=== PATIENT | male | born 1975 | race Caucasian/White ===

== ENCOUNTER 2018-02-18 11:18 | Inpatient (IN) ==
[2018-02-18] MEDS ORDERED: 0.9 % Sodium Chloride 1,000 ML IVC ONE (11:42)
[2018-02-18] MEDS ORDERED: Thiamine (B-1) 100 MG, Folic Acid 1 MG in 0.9 % Sodium Chloride 50 ML IVPB ONE (11:45)
--- NOTE | 2018-02-18 11:48 | Emergency Department Note ---
Disposition Clinical Impression: Alcoholism, Hypokalemia, Weakness Disposition: Admitted As Inpatient Condition: Fair Referrals: NONE,PCP [Primary Care Provider] - Forms: ED Satisfaction Letter, Work/School Release Time of Disposition: 15:46 General Adult HPI - General Chief complaint: ED General Medical Stated complaint: "Numbness in legs,dizzy when standing up" Time Seen by Provider: 02/18/18 11:24 Source: patient, family Mode of arrival: wheelchair Limitations: no limitations Nursing Notes Reviewed: Yes Vital Signs Reviewed: Yes - History of Present Illness HPI Narrative: 42-year-old male with history of alcoholism states that he drinks a half a bottle a day presents for evaluation of multiple complaints. Patient states he has had numbness in his lower legs over the past 4 weeks. States that he has been evaluated multiple times without a clear diagnosis. Patient's been on Lyrica to help with the numbness. Patient also had increasing weakness of his lower legs. Recurrent falls stated per family. Patient denies any loss of consciousness. Patient denies any weakness or numbness anywhere else. Patient denies any back pain. Patient denies any chest pain or shortness of breath. Denies any abdominal pain. No nausea or vomiting. Patient denies any other drug use besides alcohol. Patient was admitted in the past for alcohol withdrawals. States his last beverage was yesterday. No drinks this morning. Family also states the patient has had a 35 pound unintentional weight loss over the past couple months. States the patient just does not eat. Pain Scale: 0 - Related Data Home Medications Medication Instructions Recorded Confirmed Metoprolol Succinate [Toprol Xl] 25 mg PO DAILY 02/18/18 02/18/18 Multivits,Ca,Min/Iron/FA/Lycop 1 tab PO DAILY 02/18/18 02/18/18 [Men Under 50 Multivitamin Tab] Pregabalin [Lyrica] 75 mg PO BID 02/18/18 02/18/18 Allergies Allergy/AdvReac Type Severity Reaction Status Date / Time No Known Allergies Allergy Verified 02/18/18 11:23 All systems ED: reviewed and negative except as stated. Constitutional: Denies: fever Cardiovascular: Denies: chest pain Respiratory: Denies: cough, dyspnea Gastrointestinal: Denies: abdominal pain, nausea, vomiting Past Medical History - Past Medical History Attestation: Yes The following information was validated with the patient. Source: patient, obtained from family Physical Exam - General Limitations: no limitations General appearance: alert, in no apparent distress - Head Head exam: atraumatic - Eye Eye exam: Present: normal appearance, PERRL, EOMI, scleral icterus, nystagmus ( Left-sided horizontal nystagmus) - ENT ENT exam: normal exam, mucous membranes moist - Neck Neck exam: Present: normal inspection, trachea midline. Absent: tenderness - Chest Chest inspection: Present: normal inspection - Respiratory Respiratory exam: Present: prolonged expiratory phase, other (Course right lower lung sounds). Absent: respiratory distress - Cardiovascular Cardiovascular exam: Present: regular rate, normal rhythm. Absent: systolic murmur - Abdominal Exam Abdominal exam: Present: soft, Non-Tender - Expanded Lower Extremity Exam Knee exam: Present: normal inspection. Absent: tenderness Lower leg exam: Present: ecchymosis (Aged ecchymosis), other. Absent: tenderness Neurovascular/Tendon exam: Present: normal capillary refill, sensory deficit - Back Exam Back exam: Present: normal inspection - Neurological Exam Neurological exam: Present: alert, CN II-XII intact. Absent: oriented X3 - Expanded Neurological Exam Patient oriented to: Present: person, place. Absent: time Speech: Present: fluid speech Cranial nerves: EOM function (II, III, IV, ): Normal, facial sensation (V): Normal, facial palsy (VII): Normal, spinal accessory function (XI): Normal, tongue deviation (XII): Normal Cerebellar function: finger to nose: Abnormal Right, Abnormal Left Motor strength - LUE: 5/5 Motor strength - RUE: 5/5 Motor strength - LLE: 4/5 Motor strength - RLE: 4/5 Sensory exam lower extremity: light touch: Abnormal Left, Abnormal Right Coma Scale Eye Opening: Spontaneous Coma Scale Motor Response: Obeys Commands Coma Scale Verbal Response: Confused Coma Scale Total: 14 - Skin Skin exam: Present: warm, dry, intact, normal color Course Course Narrative: Patient seen and examined. Concerns of chronic alcoholism affecting the patient 's mentation current neurologic symptoms. Patient will get imaging of the head. Patient also had extensive imaging of the chest. Patient will get basic labs urinalysis. Disposition likely admission. - Reevaluation(s) Reevaluation #1: Patient's records reviewed from [facility]. Patient had an MRI without contrast of the lumbar spine. Patient had right-sided L4-L5 and L5-S1 facet arthropathy. Mild right foraminal stenosis of the above levels. Time: 13:53 Reevaluation #2: Patient does have evidence of diffuse inflammation throughout his chest better pelvis. Concerns of possible inflammation in the lungs as well as inflammation with colitis in the colon. Patient is not tender over the right upper quadrant however the patient does have CT findings which would warrant his ultrasound of the gallbladder. Patient will be started on broad-spectrum antibiotics. Admission to the hospital. Vital Signs Temperature 98.4 F 02/18/18 11:20 Pulse Rate 77 02/18/18 11:20 Respiratory Rate 18 02/18/18 11:20 Blood Pressure 103/46 02/18/18 11:20 O2 Sat by Pulse Oximetry 96 02/18/18 11:20 Temperature 98.4 F 02/18/18 11:23 Pulse Rate 119 02/18/18 15:12 Respiratory Rate 18 02/18/18 15:12 Blood Pressure 113/88 02/18/18 15:12 O2 Sat by Pulse Oximetry 97 02/18/18 15:12 Oxygen Delivery Oxygen Delivery Room Air Medical Decision Making - MDM Narrative Medical decision making narrative: Patient presents with acute neurologic symptoms that have been going on for the past month. Patient notes weakness of the lower legs. Patient does have atrophy the lower legs. Patient had an MRI of the lumbar spine obtained a month ago those results were reviewed. Given the patient's weight loss CT imaging of the chest abdomen pelvis is obtained. Patient has extensive inflammation with nonspecific findings throughout. Patient was started on broad -spectrum antibiotics. Patient did have several a slight abnormalities which were repleted in the ED course. Patient will be admitted to the hospital service for further evaluation monitoring. - Lab Data Lab results reviewed: Yes I reviewed the patient's lab results. Result diagrams: 02/18/18 11:58 02/18/18 11:58 Lab Results 02/18/18 02/18/18 02/18/18 Range/Units 11:38 11:58 11:58 WBC 11.3 H (4.3-11.1) K/mcL RBC 3.17 L (4.19-5.50) M/mcL Hgb 12.5 L (12.9-16.9) g/dL Hct 34.7 L (37.5-50.1) % MCV 109.5 H (83.0-100.0) fL MCH 39.4 H (28.0-33.3) pg MCHC 36.0 H (31.6-35.5) g/dL RDW 12.4 (11.5-14.5) % Plt Count 154 (140-400) K/mcL MPV 11.8 (9.4-12.4) fL Immature Gran % 1.3 (0-4) % Seg Neutrophils % 82.2 % Lymphocytes % 10.1 % Monocytes % 6.0 % Eosinophils % 0.0 % Basophils % 0.4 % Neutrophils # 9.3 H (1.6-8.9) K/mcL Lymphocytes # 1.1 (0.6-4.6) K/mcL Monocytes # 0.7 (0.0-1.3) K/mcL Eosinophils # 0.0 (0.0-0.6) K/mcL Basophils # 0.1 (0.0-0.2) K/mcL Nucleated RBCs/100 WBC 0.4 H (0) /100 WBC PT 14.3 H (9.4-12.1) Seconds INR 1.3 Sodium (136-145) mEq/L Potassium (3.5-5.1) mEq/L Chloride (98-107) mEq/L Carbon Dioxide (23-29) mEq/L BUN (6-20) mg/dL Creatinine (0.70-1.30) mg/dL Est GFR ( Amer) (> 60) Est GFR (Non-Af Amer) (> 60) BUN/Creatinine Ratio (6-26) Glucose (70-105) mg/dL Calculated Osmolality (280-300) Lactic Acid (0.5-2.2) mmol/L Calcium (8.6-10.3) mg/dL Phosphorus (2.7-4.5) mg/dL Magnesium (1.6-2.6) mg/dL Total Bilirubin (0.3-1.0) mg/dL AST (13-39) Units/L ALT (7-52) Units/L Alkaline Phosphatase (34-104) Units/L Creatine Kinase (30-223) Units/L Troponin I (< 0.04) ng/mL Serum Total Protein (6.4-8.9) g/dL Albumin (3.5-5.7) g/dL Globulin (2.4-3.5) g/dL Albumin/Globulin Ratio (1.1-2.2) Vitamin B12 677 (250-1100) pg/mL TSH (0.340-5.600) mcIU/mL Urine Color (Yellow) Urine Clarity (Clear) Urine pH (5.0-8.0) pH Units Ur Specific [place] (1.010-1.025) Urine Protein (Neg-Trace) mg/dL Urine Glucose (UA) (Normal) mg/dL Urine Ketones (Negative) mg/dL Urine Blood (Negative) Urine Nitrite (Negative) Urine Bilirubin (Negative) Urine Urobilinogen (Normal) mg/dL Ur Leukocyte Esterase (Negative) Urine Microscopic RBC (0-3) per hpf Ur Squamous Epith Cells (None-Few) per lpf Urine Bacteria (None-Few) per hpf Hyaline Casts (None-Few) per lpf Ur Culture Indicated? (NO) Urine Opiates Screen (Yqaprx=253) ng/mL Acetaminophen (10-20) mcg/mL Ur Barbiturates Screen (Rfhqyc=294) ng/mL Ur Phencyclidine Scrn (Cutoff=25) ng/mL Ur Amphetamines Screen (Xefblp=6203) ng/mL U Benzodiazepines Scrn (Azopza=352) ng/mL Urine Cocaine Screen (Cutoff= 300) ng/mL U Marijuana (THC) Screen (Cutoff = 50) ng/mL Ethyl Alcohol (Less than 10) mg/dL 02/18/18 02/18/18 02/18/18 Range/Units 11:58 11:58 12:23 WBC (4.3-11.1) K/mcL RBC (4.19-5.50) M/mcL Hgb (12.9-16.9) g/dL Hct (37.5-50.1) % MCV (83.0-100.0) fL MCH (28.0-33.3) pg MCHC (31.6-35.5) g/dL RDW (11.5-14.5) % Plt Count (140-400) K/mcL MPV (9.4-12.4) fL Immature Gran % (0-4) % Seg Neutrophils % % Lymphocytes % % Monocytes % % Eosinophils % % Basophils % % Neutrophils # (1.6-8.9) K/mcL Lymphocytes # (0.6-4.6) K/mcL Monocytes # (0.0-1.3) K/mcL Eosinophils # (0.0-0.6) K/mcL Basophils # (0.0-0.2) K/mcL Nucleated RBCs/100 WBC (0) /100 WBC PT (9.4-12.1) Seconds INR Sodium 130 L (136-145) mEq/L Potassium 2.9 L (3.5-5.1) mEq/L Chloride 81 L (98-107) mEq/L Carbon Dioxide 30 H (23-29) mEq/L BUN 6 (6-20) mg/dL Creatinine 0.95 (0.70-1.30) mg/dL Est GFR ( Amer) > 60 (> 60) Est GFR (Non-Af Amer) > 60 (> 60) BUN/Creatinine Ratio 6 (6-26) Glucose 154 H (70-105) mg/dL Calculated Osmolality 271 L (280-300) Lactic Acid (0.5-2.2) mmol/L Calcium 9.8 (8.6-10.3) mg/dL Phosphorus 1.9 L (2.7-4.5) mg/dL Magnesium 1.1 L (1.6-2.6) mg/dL Total Bilirubin 3.9 H (0.3-1.0) mg/dL AST 89 H (13-39) Units/L ALT 27 (7-52) Units/L Alkaline Phosphatase 224 H (34-104) Units/L Creatine Kinase 17 L (30-223) Units/L Troponin I < 0.03 (< 0.04) ng/mL Serum Total Protein 7.0 (6.4-8.9) g/dL Albumin 4.2 (3.5-5.7) g/dL Globulin 2.8 (2.4-3.5) g/dL Albumin/Globulin Ratio 1.5 (1.1-2.2) Vitamin B12 (250-1100) pg/mL TSH 4.574 (0.340-5.600) mcIU/mL Urine Color Dark Yellow (Yellow) Urine Clarity Slightly Hazy (Clear) Urine pH 7.0 (5.0-8.0) pH Units Ur Specific [place] 1.007 L (1.010-1.025) Urine Protein Negative (Neg-Trace) mg/dL Urine Glucose (UA) Normal (Normal) mg/dL Urine Ketones Trace H (Negative) mg/dL Urine Blood Negative (Negative) Urine Nitrite Negative (Negative) Urine Bilirubin Small H (Negative) Urine Urobilinogen 2.0 H (Normal) mg/dL Ur Leukocyte Esterase Negative (Negative) Urine Microscopic RBC 0-3 (0-3) per hpf Ur Squamous Epith Cells Moderate H (None-Few) per lpf Urine Bacteria Few (None-Few) per hpf Hyaline Casts None Seen (None-Few) per lpf Ur Culture Indicated? NO (NO) Urine Opiates Screen (Qyiywc=085) ng/mL Acetaminophen < 10 L (10-20) mcg/mL Ur Barbiturates Screen (Vgrjjd=109) ng/mL Ur Phencyclidine Scrn (Cutoff=25) ng/mL Ur Amphetamines Screen (Gunxny=3796) ng/mL U Benzodiazepines Scrn (Bmcwic=250) ng/mL Urine Cocaine Screen (Cutoff= 300) ng/mL U Marijuana (THC) Screen (Cutoff = 50) ng/mL Ethyl Alcohol < 10 (Less than 10) mg/dL 02/18/18 02/18/18 Range/Units 12:47 13:11 WBC (4.3-11.1) K/mcL RBC (4.19-5.50) M/mcL Hgb (12.9-16.9) g/dL Hct (37.5-50.1) % MCV (83.0-100.0) fL MCH (28.0-33.3) pg MCHC (31.6-35.5) g/dL RDW (11.5-14.5) % Plt Count (140-400) K/mcL MPV (9.4-12.4) fL Immature Gran % (0-4) % Seg Neutrophils % % Lymphocytes % % Monocytes % % Eosinophils % % Basophils % % Neutrophils # (1.6-8.9) K/mcL Lymphocytes # (0.6-4.6) K/mcL Monocytes # (0.0-1.3) K/mcL Eosinophils # (0.0-0.6) K/mcL Basophils # (0.0-0.2) K/mcL Nucleated RBCs/100 WBC (0) /100 WBC PT (9.4-12.1) Seconds INR Sodium (136-145) mEq/L Potassium (3.5-5.1) mEq/L Chloride (98-107) mEq/L Carbon Dioxide (23-29) mEq/L BUN (6-20) mg/dL Creatinine (0.70-1.30) mg/dL Est GFR ( Amer) (> 60) Est GFR (Non-Af Amer) (> 60) BUN/Creatinine Ratio (6-26) Glucose (70-105) mg/dL Calculated Osmolality (280-300) Lactic Acid 1.4 (0.5-2.2) mmol/L Calcium (8.6-10.3) mg/dL Phosphorus (2.7-4.5) mg/dL Magnesium (1.6-2.6) mg/dL Total Bilirubin (0.3-1.0) mg/dL AST (13-39) Units/L ALT (7-52) Units/L Alkaline Phosphatase (34-104) Units/L Creatine Kinase (30-223) Units/L Troponin I (< 0.04) ng/mL Serum Total Protein (6.4-8.9) g/dL Albumin (3.5-5.7) g/dL Globulin (2.4-3.5) g/dL Albumin/Globulin Ratio (1.1-2.2) Vitamin B12 (250-1100) pg/mL TSH (0.340-5.600) mcIU/mL Urine Color (Yellow) Urine Clarity (Clear) Urine pH (5.0-8.0) pH Units Ur Specific [place] (1.010-1.025) Urine Protein (Neg-Trace) mg/dL Urine Glucose (UA) (Normal) mg/dL Urine Ketones (Negative) mg/dL Urine Blood (Negative) Urine Nitrite (Negative) Urine Bilirubin (Negative) Urine Urobilinogen (Normal) mg/dL Ur Leukocyte Esterase (Negative) Urine Microscopic RBC (0-3) per hpf Ur Squamous Epith Cells (None-Few) per lpf Urine Bacteria (None-Few) per hpf Hyaline Casts (None-Few) per lpf Ur Culture Indicated? (NO) Urine Opiates Screen Negative (Vmjtcv=773) ng/mL Acetaminophen (10-20) mcg/mL Ur Barbiturates Screen Negative (Fsavqy=169) ng/mL Ur Phencyclidine Scrn Negative (Cutoff=25) ng/mL Ur Amphetamines Screen Negative (Qpvadk=5867) ng/mL U Benzodiazepines Scrn Negative (Uvzbdz=664) ng/mL Urine Cocaine Screen Negative (Cutoff= 300) ng/mL U Marijuana (THC) Screen Negative (Cutoff = 50) ng/mL Ethyl Alcohol (Less than 10) mg/dL - Radiology Data Radiology results reviewed: Yes I reviewed the patient's radiology results. Chest X-Ray 02/18/18 11:42 IMPRESSION: Unremarkable chest. D/ / Octavio Delgadillo MD / Octavio Delgadillo MD Interpreting Provider: Octavio Delgadillo MD Head CT 02/18/18 11:43 IMPRESSION: 1. No acute intracranial abnormality. D/ / Jett Patel MD / Jett Patel MD Interpreting Provider: Jett Patel MD Abdomen/Pelvis CT 02/18/18 11:56 IMPRESSION: 1. Tree-in-bud ground-glass densities in the right lower lobe and to a lesser extent the right upper lobe are suspicious for airway spread of infection. No focal airspace consolidation. 2. Nonspecific hyperdensity of the gallbladder lumen and hyperenhancement of the gallbladder wall may reflect sludge and nonspecific cholecystitis. Hypodensity of the adjacent liver parenchyma may reflect focal edema. If there is concern for cholecystitis, ultrasound is recommended for further evaluation. 3. Diffuse colonic wall thickening primarily involving the ascending and transverse colon may reflect underdistention ; however, subclinical infectious/inflammatory colitides or other etiologies are not excluded. Could consider nonemergent colonoscopy for further evaluation, as indicated. D/ / Kiko Vieira / Kiko Vieira Interpreting Provider: Kiko Vieira Chest CT 02/18/18 11:56 IMPRESSION: 1. Tree-in-bud ground-glass densities in the right lower lobe and to a lesser extent the right upper lobe are suspicious for airway spread of infection. No focal airspace consolidation. 2. Nonspecific hyperdensity of the gallbladder lumen and hyperenhancement of the gallbladder wall may reflect sludge and nonspecific cholecystitis. Hypodensity of the adjacent liver parenchyma may reflect focal edema. If there is concern for cholecystitis, ultrasound is recommended for further evaluation. 3. Diffuse colonic wall thickening primarily involving the ascending and transverse colon may reflect underdistention ; however, subclinical infectious/inflammatory colitides or other etiologies are not excluded. Could consider nonemergent colonoscopy for further evaluation, as indicated. D/ / Kiko Vieira / Kiko Vieira Interpreting Provider: Kiko Vieira - EKG Data EKG #1 EKG attestation: Yes I reviewed and interpreted this EKG. EKG shows normal: sinus rhythm Rate: tachycardia Rhythm: NSR [place]/QRS: normal Q waves: v4, v5, v6 Interpretation: no acute changes, nonspecific ST-T wave changes S.B.A.R. - S.B.AGiovany Situation: Demographics Background: Presenting Complaint Assessment: Vital Signs, Course and respsone to treatment Recommendation: Barrier(s) to disposition, Recommendation based on pending studies, treatments, or consults S.B.A.Raymundo Report Given to: Dr. Gaby Maradiaga Repor Time: 15:46
[2018-02-18] MEDS ORDERED: Isovue-370 500 ML INFUS..BTL IV ONE (11:56)
[2018-02-18 12:06] LABS: Basophils % 0.4 %; Red Blood Count 3.17 M/mcL (4.19-5.50)
[2018-02-18 12:12] LABS: INR 1.3; Prothrombin Time 14.3 Seconds (9.4-12.1)
[2018-02-18 12:35] LABS: Troponin I < 0.03 ng/mL (< 0.04)
[2018-02-18 12:46] LABS: Thyroid Stimulating Hormone 4.574 mcIU/mL (0.340-5.600)
[2018-02-18 12:56] LABS: Acetaminophen < 10 mcg/mL (10-20); Ethanol < 10 mg/dL (Less than 10)
[2018-02-18 12:59] LABS: Alanine Aminotransferase 27 Units/L (7-52); Albumin 4.2 g/dL (3.5-5.7); Albumin/Globulin Ratio 1.5 (1.1-2.2); Alkaline Phosphatase 224 Units/L (34-104); Aspartate Amino Transferase 89 Units/L (13-39); BUN/Creatinine Ratio 6 (6-26); Bilirubin,Total 3.9 mg/dL (0.3-1.0); Blood Urea Nitrogen 6 mg/dL (6-20); Calcium 9.8 mg/dL (8.6-10.3); Carbon Dioxide 30 mEq/L (23-29); Chloride 81 mEq/L (98-107); Creatine Kinase 17 Units/L (30-223); Globulin 2.8 g/dL (2.4-3.5); Glucose 154 mg/dL (70-105); Magnesium 1.1 mg/dL (1.6-2.6); Osmolality,Calculated 271 (280-300); Phosphorous 1.9 mg/dL (2.7-4.5); Potassium 2.9 mEq/L (3.5-5.1); Sodium 130 mEq/L (136-145); eGFR For African Americans > 60 (> 60); eGFR For Non-African Americans > 60 (> 60)
[2018-02-18 13:24] LABS: Bilirubin,Urine Small (Negative); Blood,Urine Negative (Negative); Color,Urine Dark Yellow (Yellow); Glucose,Urine (UA) Normal (Normal); Ketones,Urine Trace mg/dL (Negative); Leukocyte Esterase,Urine Negative (Negative); Nitrite,Urine Negative (Negative); Protein,Urine Negative (Neg-Trace); Specific Gravity,Urine 1.007 (1.010-1.025)
[2018-02-18 13:26] LABS: Hyaline Casts,Urine None Seen per lpf (None-Few)
[2018-02-18 13:27] LABS: Clarity,Urine Slightly Hazy (Clear)
[2018-02-18 13:38] LABS: Basophils # 0.1 K/mcL (0.0-0.2); Hematocrit 34.7 % (37.5-50.1); Hemoglobin 12.5 g/dL (12.9-16.9); Immature Granulocytes % 1.3 % (0-4); Lymphocytes # 1.1 K/mcL (0.6-4.6); Lymphocytes % 10.1 %; Mean Corpuscular Hemoglobin 39.4 pg (28.0-33.3); Mean Corpuscular Volume 109.5 fL (83.0-100.0); Mean Platelet Volume 11.8 fL (9.4-12.4); Monocytes # 0.7 K/mcL (0.0-1.3); Neutrophils # 9.3 K/mcL (1.6-8.9); Nucleated Red Blood Cells 0.4 /100 WBC (0); Platelet Count 154 K/mcL (140-400); Red Cell Distribution Width 12.4 % (11.5-14.5); Segmented Neutrophils % 82.2 %
[2018-02-18 13:39] LABS: RBC,Urine 0-3 per hpf (0-3)
[2018-02-18 13:40] LABS: Bacteria,Urine Few per hpf (None-Few); Squamous Epithelial Cell,Urine Moderate per lpf (None-Few)
[2018-02-18] MEDS ORDERED: Potassium Chloride 20 MEQ, Lidocaine 1% 2 ML in D5% in Water 250 ML IVPB ONE (13:51)
[2018-02-18 13:53] LABS: Amphetamine Screen,Urine Negative ng/mL (Cutoff=1000); Barbiturate Screen,Urine Negative ng/mL (Cutoff=200); Benzodiazepines Screen,Urine Negative ng/mL (Cutoff=200); Cannabinoid Screen,Urine Negative ng/mL (Cutoff = 50); Cocaine Screen,Urine Negative ng/mL (Cutoff= 300); Opiate Screen,Urine Negative ng/mL (Cutoff=300); Phencyclidine Screen,Urine Negative ng/mL (Cutoff=25)
[2018-02-18] MEDS ORDERED: Cyanocobalamin (B-12) 1,000 MCG/ML VIAL IM ONE (14:01)
[2018-02-18] MEDS ORDERED: Piperacillin/Tazobactam 3.375 GM in 0.9 % Sodium Chloride Mini Bag 100 ML IVPB ONE (15:33)
[2018-02-18] MEDS ORDERED: Naloxone 0.4 MG/ML INJ IVP PRN (17:37)
--- NOTE | 2018-02-18 17:47 | Internal Med History&Physical ---
Date of Encounter: 02/18/18 Time of Encounter: 17:45 Internal Medicine - H&P: HPI Chief complaint: b/l LE paresthesia History of present illness: Mr. Diaz is a 42 year old male with a history of alcoholism who presents with 4 months history of progressive bilateral lower extremity neuropathy. He was apparently worked up in [place] a month ago with an MRI of the lumbar spine that demonstrated osteo-arthritis, DJD. He has notable peripheral neuropathy with altered sensation from the foot all the way to distal knee. Symptoms and progressive for the last 4 months leading to inability to ambulate. He drinks 3-4 cups of liquor, And Ramiro every 3-4 days. He has a history of chronic alcoholism since in his teens. In the ED he was found to be in severe electrolyte disturbance EKG personally reviewed with rate of 122, sinus tachycardia, ST changes nonspecific US/US gall bladder IMPRESSION: 1. Suboptimal examination with nonvisualized common bile duct and pancreas. 2. Hepatic fatty infiltration as described. 3. Moderate gallbladder sludge. CT/CT chest w con IMPRESSION: 1. Tree-in-bud ground-glass densities in the right lower lobe and to a lesser extent the right upper lobe are suspicious for airway spread of infection. No focal airspace consolidation. 2. Nonspecific hyperdensity of the gallbladder lumen and hyperenhancement of the gallbladder wall may reflect sludge and nonspecific cholecystitis. Hypodensity of the adjacent liver parenchyma may reflect focal edema. If there is concern for cholecystitis, ultrasound is recommended for further evaluation. 3. Diffuse colonic wall thickening primarily involving the ascending and transverse colon may reflect underdistention ; however, subclinical infectious/inflammatory colitides or other etiologies are not excluded. Could consider nonemergent colonoscopy for further evaluation, as indicated. CT/CT abd pelvis w iv no oral IMPRESSION: 1. Tree-in-bud ground-glass densities in the right lower lobe and to a lesser extent the right upper lobe are suspicious for airway spread of infection. No focal airspace consolidation. 2. Nonspecific hyperdensity of the gallbladder lumen and hyperenhancement of the gallbladder wall may reflect sludge and nonspecific cholecystitis. Hypodensity of the adjacent liver parenchyma may reflect focal edema. If there is concern for cholecystitis, ultrasound is recommended for further evaluation. 3. Diffuse colonic wall thickening primarily involving the ascending and transverse colon may reflect underdistention ; however, subclinical infectious/inflammatory colitides or other etiologies are not excluded. Could consider nonemergent colonoscopy for further evaluation, as indicated. XR/XR chest 1V portable IMPRESSION: Unremarkable chest. CT/CT head/brain wo con IMPRESSION: 1. No acute intracranial abnormality. Past Med Surg Social Fam HX - Past Medical History Medical history: hypertension Psychiatric history: depression - Social History Smoking Status: Current every day smoker Smokeless Tobacco Status: No Alcohol use: heavy, recent Drug use: none Internal Medicine - H&P: Meds Metoprolol Succinate [Toprol Xl] 25 mg PO DAILY 02/18/18 [History] Multivits,Ca,Min/Iron/FA/Lycop [Men Under 50 Multivitamin Tab] 1 tab PO DAILY [History] Pregabalin [Lyrica] 75 mg PO BID 02/18/18 [History] 3 Allergy/AdvReac Type Severity Reaction Status Date / Time No Known Allergies Allergy Verified 02/18/18 11:23 All Systems PM: A 10-system review of systems was performed and is negative for pertinent findings except as documented above in the HPI. Review of systems: ROS 14 point review of systems reviewed as best as possible given presentation. Pertinent positive or negative as per HPI or otherwise reviewed as negative - Constitutional Vitals: Temp Pulse Resp BP Pulse Ox 98.4 F 119 18 113/88 97 02/18/18 11:23 02/18/18 15:12 02/18/18 15:12 02/18/18 15:12 02/18/18 15:12 Exam: General - AAO x 3 Psych - Appropriate affect/speech. No agitation Eyes - SILVA. Eye lids intact. No scleral icterus Neuro - no gross central deficits, peripheral neuropathy bilaterally up to the knees Heart - Sinus tachycardia. RRR. S1 and S2 present. No added HS/murmurs appreciated. No elevated JVD appreciated. Lung - Adequate air entry b/l, No crackles/wheezes appreciated GI - Soft, non-tender. No hepatosplenomegaly/ascites. BS+ - No CVA/suprapubic tenderness or palpable bladder distension Skin - Intact. No rash/petechiae/ecchymosis. Warm extremities Internal Med - H&P Results - Labs CBC & Chem 7: 02/18/18 11:58 02/18/18 11:58 - Assessment and plan (1) Electrolyte abnormality Current Visit: Yes Status: Acute Assessment and plan: trend labs replete IV Mg, Phos, PO potassium all 2/2 alcoholism (2) Neuropathy, alcoholic Current Visit: Yes Status: Acute Assessment and plan: progressive neuropathy 2/2 to alcoholism Check B12, folate PT/OT eval consider outpatient testing with neurology (3) Alcoholism Current Visit: Yes Status: Acute Assessment and plan: CIWA scale (4) Bronchiolitis Current Visit: Yes Status: Acute Assessment and plan: bronchiolitis on CT chest - likely incidental no overt clinical symptoms will empirically complete doxycycline IV while inpatient (5) Colitis Current Visit: Yes Status: Acute Assessment and plan: no clinical evidence - but given antibiotics in the ED based on questionable CT A/P findings - Time Spent With Patient Total time spent is greater than 50% in coordination of care (as documented) at patient's floor/unit and/or counseling patient:
[2018-02-18] MEDS ORDERED: diazePAM 10 MG/2 ML SYRINGE IVP PRN ×5 (17:54)
[2018-02-18] MEDS ORDERED: Doxycycline 200 MG in 0.9 % Sodium Chloride 250 ML IVPB SCH ×2 (18:00→22:00)
--- NOTE | 2018-02-18 18:04 | Emergency Department Note ---
Disposition Clinical Impression: Alcoholism, Hypokalemia, Weakness, Colitis Disposition: Admitted As Inpatient Condition: Fair General Adult HPI - General Chief complaint: ED General Medical Stated complaint: "Numbness in legs,dizzy when standing up" Time Seen by Provider: 02/18/18 11:24 Source: patient, family Mode of arrival: wheelchair Limitations: no limitations - History of Present Illness Pain Scale: 0 - Related Data Home Medications Medication Instructions Recorded Confirmed Metoprolol Succinate [Toprol Xl] 25 mg PO DAILY 02/18/18 02/18/18 Multivits,Ca,Min/Iron/FA/Lycop 1 tab PO DAILY 02/18/18 02/18/18 [Men Under 50 Multivitamin Tab] Pregabalin [Lyrica] 75 mg PO BID 02/18/18 02/18/18 Allergies Allergy/AdvReac Type Severity Reaction Status Date / Time No Known Allergies Allergy Verified 02/18/18 11:23 Constitutional: Denies: fever Cardiovascular: Denies: chest pain Respiratory: Denies: cough, dyspnea Gastrointestinal: Denies: abdominal pain, nausea, vomiting Past Medical History - Past Medical History Medical history: Reports: hypertension Psychiatric history: Reports: depression - Social History Smoking Status: Current every day smoker Smokeless Tobacco Status: No Alcohol use: Reports: heavy, recent Drug use: Reports: none Physical Exam - General Limitations: no limitations General appearance: alert, in no apparent distress Course Vital Signs Temperature 98.4 F 02/18/18 11:20 Pulse Rate 77 02/18/18 11:20 Respiratory Rate 18 02/18/18 11:20 Blood Pressure 103/46 02/18/18 11:20 O2 Sat by Pulse Oximetry 96 02/18/18 11:20 Temperature 99.5 F 02/18/18 18:37 Pulse Rate 117 02/18/18 18:37 Respiratory Rate 14 02/18/18 18:37 Blood Pressure 118/80 02/18/18 18:37 O2 Sat by Pulse Oximetry 98 02/18/18 18:37 Oxygen Delivery Oxygen Delivery Room Air Medical Decision Making - Lab Data Result diagrams: 02/18/18 11:58 02/18/18 11:58 Lab Results 02/18/18 02/18/18 02/18/18 Range/Units 11:38 11:58 11:58 WBC 11.3 H (4.3-11.1) K/mcL RBC 3.17 L (4.19-5.50) M/mcL Hgb 12.5 L (12.9-16.9) g/dL Hct 34.7 L (37.5-50.1) % MCV 109.5 H (83.0-100.0) fL MCH 39.4 H (28.0-33.3) pg MCHC 36.0 H (31.6-35.5) g/dL RDW 12.4 (11.5-14.5) % Plt Count 154 (140-400) K/mcL MPV 11.8 (9.4-12.4) fL Immature Gran % 1.3 (0-4) % Seg Neutrophils % 82.2 % Lymphocytes % 10.1 % Monocytes % 6.0 % Eosinophils % 0.0 % Basophils % 0.4 % Neutrophils # 9.3 H (1.6-8.9) K/mcL Lymphocytes # 1.1 (0.6-4.6) K/mcL Monocytes # 0.7 (0.0-1.3) K/mcL Eosinophils # 0.0 (0.0-0.6) K/mcL Basophils # 0.1 (0.0-0.2) K/mcL Nucleated RBCs/100 WBC 0.4 H (0) /100 WBC PT 14.3 H (9.4-12.1) Seconds INR 1.3 Sodium (136-145) mEq/L Potassium (3.5-5.1) mEq/L Chloride (98-107) mEq/L Carbon Dioxide (23-29) mEq/L BUN (6-20) mg/dL Creatinine (0.70-1.30) mg/dL Est GFR ( Amer) (> 60) Est GFR (Non-Af Amer) (> 60) BUN/Creatinine Ratio (6-26) Glucose (70-105) mg/dL Calculated Osmolality (280-300) Lactic Acid (0.5-2.2) mmol/L Calcium (8.6-10.3) mg/dL Phosphorus (2.7-4.5) mg/dL Magnesium (1.6-2.6) mg/dL Total Bilirubin (0.3-1.0) mg/dL AST (13-39) Units/L ALT (7-52) Units/L Alkaline Phosphatase (34-104) Units/L Creatine Kinase (30-223) Units/L Troponin I (< 0.04) ng/mL Serum Total Protein (6.4-8.9) g/dL Albumin (3.5-5.7) g/dL Globulin (2.4-3.5) g/dL Albumin/Globulin Ratio (1.1-2.2) Vitamin B12 677 (250-1100) pg/mL TSH (0.340-5.600) mcIU/mL Urine Color (Yellow) Urine Clarity (Clear) Urine pH (5.0-8.0) pH Units Ur Specific Gary (1.010-1.025) Urine Protein (Neg-Trace) mg/dL Urine Glucose (UA) (Normal) mg/dL Urine Ketones (Negative) mg/dL Urine Blood (Negative) Urine Nitrite (Negative) Urine Bilirubin (Negative) Urine Urobilinogen (Normal) mg/dL Ur Leukocyte Esterase (Negative) Urine Microscopic RBC (0-3) per hpf Ur Squamous Epith Cells (None-Few) per lpf Urine Bacteria (None-Few) per hpf Hyaline Casts (None-Few) per lpf Ur Culture Indicated? (NO) Urine Opiates Screen (Mpwdqx=582) ng/mL Acetaminophen (10-20) mcg/mL Ur Barbiturates Screen (Ztagpr=667) ng/mL Ur Phencyclidine Scrn (Cutoff=25) ng/mL Ur Amphetamines Screen (Ltrfkz=9487) ng/mL U Benzodiazepines Scrn (Baialc=519) ng/mL Urine Cocaine Screen (Cutoff= 300) ng/mL U Marijuana (THC) Screen (Cutoff = 50) ng/mL Ethyl Alcohol (Less than 10) mg/dL 02/18/18 02/18/18 02/18/18 Range/Units 11:58 11:58 12:23 WBC (4.3-11.1) K/mcL RBC (4.19-5.50) M/mcL Hgb (12.9-16.9) g/dL Hct (37.5-50.1) % MCV (83.0-100.0) fL MCH (28.0-33.3) pg MCHC (31.6-35.5) g/dL RDW (11.5-14.5) % Plt Count (140-400) K/mcL MPV (9.4-12.4) fL Immature Gran % (0-4) % Seg Neutrophils % % Lymphocytes % % Monocytes % % Eosinophils % % Basophils % % Neutrophils # (1.6-8.9) K/mcL Lymphocytes # (0.6-4.6) K/mcL Monocytes # (0.0-1.3) K/mcL Eosinophils # (0.0-0.6) K/mcL Basophils # (0.0-0.2) K/mcL Nucleated RBCs/100 WBC (0) /100 WBC PT (9.4-12.1) Seconds INR Sodium 130 L (136-145) mEq/L Potassium 2.9 L (3.5-5.1) mEq/L Chloride 81 L (98-107) mEq/L Carbon Dioxide 30 H (23-29) mEq/L BUN 6 (6-20) mg/dL Creatinine 0.95 (0.70-1.30) mg/dL Est GFR ( Amer) > 60 (> 60) Est GFR (Non-Af Amer) > 60 (> 60) BUN/Creatinine Ratio 6 (6-26) Glucose 154 H (70-105) mg/dL Calculated Osmolality 271 L (280-300) Lactic Acid (0.5-2.2) mmol/L Calcium 9.8 (8.6-10.3) mg/dL Phosphorus 1.9 L (2.7-4.5) mg/dL Magnesium 1.1 L (1.6-2.6) mg/dL Total Bilirubin 3.9 H (0.3-1.0) mg/dL AST 89 H (13-39) Units/L ALT 27 (7-52) Units/L Alkaline Phosphatase 224 H (34-104) Units/L Creatine Kinase 17 L (30-223) Units/L Troponin I < 0.03 (< 0.04) ng/mL Serum Total Protein 7.0 (6.4-8.9) g/dL Albumin 4.2 (3.5-5.7) g/dL Globulin 2.8 (2.4-3.5) g/dL Albumin/Globulin Ratio 1.5 (1.1-2.2) Vitamin B12 (250-1100) pg/mL TSH 4.574 (0.340-5.600) mcIU/mL Urine Color Dark Yellow (Yellow) Urine Clarity Slightly Hazy (Clear) Urine pH 7.0 (5.0-8.0) pH Units Ur Specific Gary 1.007 L (1.010-1.025) Urine Protein Negative (Neg-Trace) mg/dL Urine Glucose (UA) Normal (Normal) mg/dL Urine Ketones Trace H (Negative) mg/dL Urine Blood Negative (Negative) Urine Nitrite Negative (Negative) Urine Bilirubin Small H (Negative) Urine Urobilinogen 2.0 H (Normal) mg/dL Ur Leukocyte Esterase Negative (Negative) Urine Microscopic RBC 0-3 (0-3) per hpf Ur Squamous Epith Cells Moderate H (None-Few) per lpf Urine Bacteria Few (None-Few) per hpf Hyaline Casts None Seen (None-Few) per lpf Ur Culture Indicated? NO (NO) Urine Opiates Screen (Fnagzh=153) ng/mL Acetaminophen < 10 L (10-20) mcg/mL Ur Barbiturates Screen (Rkfyat=276) ng/mL Ur Phencyclidine Scrn (Cutoff=25) ng/mL Ur Amphetamines Screen (Cexbjc=4435) ng/mL U Benzodiazepines Scrn (Chluvt=740) ng/mL Urine Cocaine Screen (Cutoff= 300) ng/mL U Marijuana (THC) Screen (Cutoff = 50) ng/mL Ethyl Alcohol < 10 (Less than 10) mg/dL 02/18/18 02/18/18 Range/Units 12:47 13:11 WBC (4.3-11.1) K/mcL RBC (4.19-5.50) M/mcL Hgb (12.9-16.9) g/dL Hct (37.5-50.1) % MCV (83.0-100.0) fL MCH (28.0-33.3) pg MCHC (31.6-35.5) g/dL RDW (11.5-14.5) % Plt Count (140-400) K/mcL MPV (9.4-12.4) fL Immature Gran % (0-4) % Seg Neutrophils % % Lymphocytes % % Monocytes % % Eosinophils % % Basophils % % Neutrophils # (1.6-8.9) K/mcL Lymphocytes # (0.6-4.6) K/mcL Monocytes # (0.0-1.3) K/mcL Eosinophils # (0.0-0.6) K/mcL Basophils # (0.0-0.2) K/mcL Nucleated RBCs/100 WBC (0) /100 WBC PT (9.4-12.1) Seconds INR Sodium (136-145) mEq/L Potassium (3.5-5.1) mEq/L Chloride (98-107) mEq/L Carbon Dioxide (23-29) mEq/L BUN (6-20) mg/dL Creatinine (0.70-1.30) mg/dL Est GFR ( Amer) (> 60) Est GFR (Non-Af Amer) (> 60) BUN/Creatinine Ratio (6-26) Glucose (70-105) mg/dL Calculated Osmolality (280-300) Lactic Acid 1.4 (0.5-2.2) mmol/L Calcium (8.6-10.3) mg/dL Phosphorus (2.7-4.5) mg/dL Magnesium (1.6-2.6) mg/dL Total Bilirubin (0.3-1.0) mg/dL AST (13-39) Units/L ALT (7-52) Units/L Alkaline Phosphatase (34-104) Units/L Creatine Kinase (30-223) Units/L Troponin I (< 0.04) ng/mL Serum Total Protein (6.4-8.9) g/dL Albumin (3.5-5.7) g/dL Globulin (2.4-3.5) g/dL Albumin/Globulin Ratio (1.1-2.2) Vitamin B12 (250-1100) pg/mL TSH (0.340-5.600) mcIU/mL Urine Color (Yellow) Urine Clarity (Clear) Urine pH (5.0-8.0) pH Units Ur Specific Gary (1.010-1.025) Urine Protein (Neg-Trace) mg/dL Urine Glucose (UA) (Normal) mg/dL Urine Ketones (Negative) mg/dL Urine Blood (Negative) Urine Nitrite (Negative) Urine Bilirubin (Negative) Urine Urobilinogen (Normal) mg/dL Ur Leukocyte Esterase (Negative) Urine Microscopic RBC (0-3) per hpf Ur Squamous Epith Cells (None-Few) per lpf Urine Bacteria (None-Few) per hpf Hyaline Casts (None-Few) per lpf Ur Culture Indicated? (NO) Urine Opiates Screen Negative (Tkvzwz=771) ng/mL Acetaminophen (10-20) mcg/mL Ur Barbiturates Screen Negative (Vkrvqu=949) ng/mL Ur Phencyclidine Scrn Negative (Cutoff=25) ng/mL Ur Amphetamines Screen Negative (Wexjcc=9662) ng/mL U Benzodiazepines Scrn Negative (Puqcjb=172) ng/mL Urine Cocaine Screen Negative (Cutoff= 300) ng/mL U Marijuana (THC) Screen Negative (Cutoff = 50) ng/mL Ethyl Alcohol (Less than 10) mg/dL Attestation Statement - Attestation Attestation: I examined this patient and my medical decision-making was reviewed with the Resident Physician, Dr. Stewart. I agree with the documented findings, disposition and treatment plan as described except to the extent set forth below. Patient is a 42-year-old white male with history of alcoholism who presents to the emergency department today with complaints of gradually worsening generalized weakness. He reports primarily involves both legs bilaterally and numbness throughout the distal hands and feet bilaterally. Patient denies any headache or visual changes, no focal weakness to one side or slurred speech, no history of falls or trauma. Patient states he has had this ongoing for quite some time and was hospitalized in November at [facility] in [place] and at that time was worked up for his alcoholism and back pain and had MRIs of his spine. Patient here because he is frustrated with the ongoing weakness and has been having frequent falls at home. Patient denies any head injuries, no back or chest pain, no abdominal pain or flank pain, and no. Contusions or injuries related to the falls. Patient has most muscle wasting apparent on his exam of his lower extremities and reports significant weight loss due to lack of appetite over the past 2 months. I agree with patient's physical exam findings as documented. Vital signs are stable on arrival patient's in no acute distress. Patient with elevated bilirubin slight elevation in his AST with normal a LT consistent with his history of alcoholism. Patient denied any associated abdominal pain or back pain. Patient underwent CT imaging of his chest and abdomen and pelvis requested by hospitalist with concerns for malignancy due to patient's weight loss and generalized weakness. Imaging does not show any sign of any mass or tumor but does show just generalized inflammation within the right chest without infiltrate and evidence of colitis. Patient will be covered with antibiotics. He also had of mild decrease in his potassium and magnesium which we replaced while in the emergency department and has been receiving IV fluids since arrival. Head CT is unremarkable for anything acute. Patient does have an alcohol level of over 200 here. Patient will be admitted for further evaluation and management by the hospitalist service and is hemodynamically stable here in the emergency department.
[2018-02-18] MEDS: 0.9 % Sodium Chloride w KCl 20 MEQ/1,000 ML MLS IVC SCH (21:07)
--- NOTE | 2018-02-18 22:29 | Electrocardiograph Report ---
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
[2018-02-19] MEDS: *HR* Enoxaparin 40 MG/0.4 ML SYRINGE SQ SCH (06:00)
[2018-02-19 06:14] LABS: Basophils % 0.4 %; Eosinophils % 0.5 %; Hematocrit 27.9 % (37.5-50.1); Immature Granulocytes % 1.2 % (0-4); Lymphocytes # 1.4 K/mcL (0.6-4.6); Lymphocytes % 16.3 %; Mean Corpuscular HGB Conc 35.1 g/dL (31.6-35.5); Mean Corpuscular Hemoglobin 38.7 pg (28.0-33.3); Mean Corpuscular Volume 110.3 fL (83.0-100.0); Mean Platelet Volume 11.9 fL (9.4-12.4); Monocytes # 0.5 K/mcL (0.0-1.3); Monocytes % 5.9 %; Platelet Count 127 K/mcL (140-400); Red Blood Count 2.53 M/mcL (4.19-5.50); Red Cell Distribution Width 12.4 % (11.5-14.5); Segmented Neutrophils % 75.7 %
[2018-02-19 06:17] LABS: Hemoglobin 9.8 g/dL (12.9-16.9); Neutrophils # 6.4 K/mcL (1.6-8.9)
[2018-02-19 06:36] LABS: Alanine Aminotransferase 21 Units/L (7-52); Albumin 3.4 g/dL (3.5-5.7); Albumin/Globulin Ratio 1.3 (1.1-2.2); Alkaline Phosphatase 165 Units/L (34-104); Aspartate Amino Transferase 65 Units/L (13-39); BUN/Creatinine Ratio 6 (6-26); Bilirubin,Total 3.2 mg/dL (0.3-1.0); Blood Urea Nitrogen 4 mg/dL (6-20); Calcium 8.3 mg/dL (8.6-10.3); Carbon Dioxide 27 mEq/L (23-29); Chloride 93 mEq/L (98-107); Globulin 2.6 g/dL (2.4-3.5); Glucose 98 mg/dL (70-105); Osmolality,Calculated 269 (280-300); Phosphorous 2.2 mg/dL (2.7-4.5); Potassium 3.3 mEq/L (3.5-5.1); Sodium 131 mEq/L (136-145); eGFR For African Americans > 60 (> 60); eGFR For Non-African Americans > 60 (> 60)
[2018-02-19 06:39] LABS: Macrocytosis Present (Not Present)
[2018-02-19 06:40] LABS: Platelet Estimate Decreased (Normal)
[2018-02-19] MEDS: 0.9 % Sodium Chloride w KCl 20 MEQ/1,000 ML MLS IVC SCH ×2 (07:05→21:35)
--- NOTE | 2018-02-19 11:06 | Internal Med Progress Note ---
<Floresita Brandon - Last Filed: 02/19/18 13:37> Date of Encounter: 02/19/18 Time of Encounter: 11:02 - Assessment and plan (1) Alcoholism Current Visit: Yes Status: Acute Assessment and plan: Patient reported that he drinks 4 to 5 cups of [employer] of packed every day since November and prior to that he would drink 2 cups of [employer] on the weekends. He increased his drinking since he is been off work since November due to paresthesias in his legs. He was counseled on his alcohol intake and recommended to decrease. -[facility] protocol -given thiamine (2) Electrolyte abnormality Current Visit: Yes Status: Acute Assessment and plan: Electrolytes were low likely secondary to alcoholism and decreased oral intake. The patient reported that he is had a 38 pound weight loss since November due to decreased oral intake from feeling full. Sodium 131 (130) potassium 3.3 (2.9) magnesium 2.0 (1.1) phosphorus 2.2 (1.9) -Supplemented IV Mg, Phos, PO potassium -BMP in AM (3) Colitis Current Visit: Yes Status: Acute Assessment and plan: Patient has no symptoms or clinical evidence - but given antibiotics in the ED based on questionable CT A/P findings -no longer given antibiotics for this (4) Bronchiolitis Current Visit: Yes Status: Acute Assessment and plan: Chest CT demonstrated concerns for bronchiolitis in the right lower lobe and right upper lobe. The patient is an alcoholic which is concerning for aspiration. The patient denies shortness of breath, cough, wheezing, fever, chills. However on auscultation the patient does have inspiratory wheezing in the right lower lobe and right upper lobe. He has been tachycardic and mildly elevated WBC 11.3 initially. -Stopped doxycycline -started Augmentin (5) Hypertension Current Visit: Yes Status: Acute Assessment and plan: Patient has a history of hypertension taking Toprol 25 mg daily however pharmacy was able to see that he is not filled his medication since beginning of December. Blood pressure stable 106/73 will hold home medication for now due to lower blood pressure Qualifiers: Qualified Code(s): I10 - Essential (primary) hypertension (6) DVT prophylaxis Current Visit: Yes Status: Acute Assessment and plan: Lovenox SQ (7) Paresthesia of both lower extremities Current Visit: Yes Status: Acute Assessment and plan: The paresthesias are likely secondary to alcoholism. Patient reports paresthesias in bilateral lower extremities from feet to kneecap with pins and needles sensation on bottom of feet. This has been going on since about October and November as it progressed he went to [facility] where a neurosurgeon and neurologist evaluated him. MRI the spine demonstrated right-sided L4-L5 and L5-S1 facet arthropathy. Mild right foraminal stenosis of the above levels. The surgeon told him surgery was not appropriate. The patient reported that the neurologist "did not do much for him ". He is currently on Lyrica. He came to the ER because for the past 2 weeks he has had increased difficulty in walking due to the paresthesias in his legs. He is an alcoholic and drinks 4-5 cups of [employer] a day. Folate 2.4 low vitamin B12 677 WNL -Consult nephrology, recommendations appreciated -homocysteine and methylmalonic acid ordered -PT/OT recommend inpatient rehabilitation - Time Spent With Patient Total time spent is greater than 50% in coordination of care (as documented) at patient's floor/unit and/or counseling patient: - Subjective Interval history: 42yo male PMH HTN, alcoholism who presented to ED complaining of bilateral lower extremity paresthesias. He currently says his legs from feet to kneecap are still numb and that the bottoms of his feet feel like pins and needles. He only complaint that he has had a couple bouts of loose stools since being admitted. He denies fever, chills, chest pain, shortness of breath, abdominal pain, nausea, vomiting, cough. - Constitutional Vitals: Temp Pulse Resp BP Pulse Ox 98.0 F 105 16 106/73 99 02/19/18 10:13 02/19/18 10:13 02/19/18 10:13 02/19/18 10:13 02/19/18 10:13 Exam: Gen.: Vitals noted. No acute distress. AAOx3 HEENT: oropharynx clear, Normocephalic, atraumatic Cardiac: RRR, no murmur, +S1/S2 Pulmonary: CTA bilaterally except for rights lower lobe and upper lobe inspiratory wheezes, no rales or rhonchi, equal chest expansion Abdomen: soft, nontender, Bowel sounds noted, no guarding MSK: ROM intact, no joint swelling noted Extremities: no BLE edema, nontender calf, no cyanosis Neuro: A&Ox3, moves all extremities, bilaterally kneecap down has decreased sensation, no proprioception of lower extremities Psych: Appropriate mood and behavior Internal Medicine: Result - Labs CBC & Chem 7: 02/19/18 04:46 02/19/18 04:46 Labs: Short CBC 02/19/18 Range/Units 04:46 WBC 8.5 (4.3-11.1) K/mcL Hgb 9.8 L D (12.9-16.9) g/dL Hct 27.9 L (37.5-50.1) % Plt Count 127 L (140-400) K/mcL Neutrophils # 6.4 (1.6-8.9) K/mcL BMP 02/19/18 04:46 Sodium 131 L Potassium 3.3 L Chloride 93 L Carbon Dioxide 27 BUN 4 L Creatinine 0.65 L Glucose 98 Calcium 8.3 L Liver Function 02/19/18 Range/Units 04:46 Total Bilirubin 3.2 H (0.3-1.0) mg/dL AST 65 H (13-39) Units/L ALT 21 (7-52) Units/L Alkaline Phosphatase 165 H (34-104) Units/L Albumin 3.4 L (3.5-5.7) g/dL - ABG Interpretation ABG results: PT/INR, D-dimer PT 14.3 Seconds (9.4-12.1) H 02/18/18 11:58 Consult Discharge Plan - Plan Referrals: Tunde Beyer MD [Partnered Physician] - 02/27/18 9:45 am <Jeremiah Pina - Last Filed: 02/19/18 15:23> Date of Encounter: 02/19/18 - Assessment and plan (1) Neuropathy due to nutritional deficiency Current Visit: Yes Status: Suspected (2) Anemia, macrocytic, nutritional Current Visit: Yes Status: Acute (3) Bronchiolitis Current Visit: Yes Status: Acute (4) Alcoholism Current Visit: Yes Status: Acute (5) Colitis Current Visit: Yes Status: Acute (6) Electrolyte abnormality Current Visit: Yes Status: Acute (7) Hypertension Current Visit: Yes Status: Acute Qualifiers: Hypertension type: essential hypertension Qualified Code(s): I10 - Essential (primary) hypertension (8) Tobacco abuse Current Visit: Yes Status: Chronic (9) Paresthesia of both lower extremities Current Visit: Yes Status: Acute (10) DVT prophylaxis Current Visit: Yes Status: Acute - Time Spent With Patient Total time spent is greater than 50% in coordination of care (as documented) at patient's floor/unit and/or counseling patient: - Constitutional Vitals: Temp Pulse Resp BP Pulse Ox 99.1 F 97 18 107/79 96 02/19/18 14:50 02/19/18 14:50 02/19/18 14:50 02/19/18 14:50 02/19/18 14:50 Internal Medicine: Result - Labs CBC & Chem 7: 02/19/18 04:46 02/19/18 04:46 Labs: Short CBC 02/19/18 Range/Units 04:46 WBC 8.5 (4.3-11.1) K/mcL Hgb 9.8 L D (12.9-16.9) g/dL Hct 27.9 L (37.5-50.1) % Plt Count 127 L (140-400) K/mcL Neutrophils # 6.4 (1.6-8.9) K/mcL BMP 02/19/18 04:46 Sodium 131 L Potassium 3.3 L Chloride 93 L Carbon Dioxide 27 BUN 4 L Creatinine 0.65 L Glucose 98 Calcium 8.3 L Liver Function 02/19/18 Range/Units 04:46 Total Bilirubin 3.2 H (0.3-1.0) mg/dL AST 65 H (13-39) Units/L ALT 21 (7-52) Units/L Alkaline Phosphatase 165 H (34-104) Units/L Albumin 3.4 L (3.5-5.7) g/dL - ABG Interpretation ABG results: PT/INR, D-dimer PT 14.3 Seconds (9.4-12.1) H 02/18/18 11:58 - Attending Attestation I examined this patient and my medical decision-making was reviewed with the Resident Physician on 02/19/18. I agree with the documented findings, disposition and treatment plan as described except to the extent set forth below. Mr Amaro is currently admitted for lower extremity weakness and parasthesias. He remains moderate to high risk due to potential for worsening clinical status. Mr Amaro is continuing to have symptoms. He is overall frustrated that he has no clear answer. No CP or SOB. No fever. No GI issues. Exam alert Comfortable at this time Mucus membranes dry Heart not tachy Lungs no wheeze Bilateral LE with decreased sensation and no proprioception. Mild tremor UEs. I/P 1. Neuropathy - appears to be peripheral. Neuro consulted. Swing bed recommended. 2. Folate deficiency 3. Macrocytic anemia Further diagnoses and plan as above.
[2018-02-19] MEDS: Thiamine (B-1) 100 MG TABLET PO SCH (12:29)
[2018-02-19] MEDS: Folic Acid 1 MG TABLET PO SCH (12:29)
[2018-02-19] MEDS: Vitamin B Complex/Vit C/Vit E 1 EACH TABLET PO SCH (12:29)
--- NOTE | 2018-02-19 14:41 | Neurology - Consult Note ---
Date of Encounter: 02/19/18 Time of Encounter: 14:30 Assessment and Plan (1) Sensorimotor neuropathy Current Visit: Yes Status: Acute Neuro exam nonfocal, nonlateralizing except for significant bilateral lower extremity decrease in temperature, pinprick, light touch sensation, significant proprioception abnormalities. Patient also exhibits bilateral lower extremity weakness and 3/5 strength plantar and dorsiflexion of the ankle. He also has absent bilateral Achilles and patellar reflexes. CT of the head is negative. Patient's CBC shows macrocytic anemia with a folate level of 2.4 and B12 677. Patient had lumbar MRI done as noted in history of present illness showing degenerative disease and mild foraminal stenosis. He has a history of alcoholism. It is concerning that his symptoms have worsened progressively over the last 4 months. Patient's presentation can be due vitamin B12 deficiency, B6 deficiency, CIDP, DM, cervical spine pathology. Will obtain MRI of cervical spine, lumbar punture, Vit B6, HgA1c. History of Present Illness Chief complaint: Lower extremity numbness HPI: Mr. Diaz is a 42 year old male presented with chief complaint of lower extremity numbness and difficulty walking. Patient drinks 4-5 cups of [employer] Ramiro daily. Patient reports this numbness started 4 months ago. He states he woke up with it and extends from his toes to knees bilaterally. He reports it has not progressively worsened until starting 2 weeks ago where he has more difficulty walking. He has frequent falls. He complains of pins and needle sensation on both plantar aspects of his feet. Patient had this chief complaint evaluated outpatient at [facility]. At that time he had MRI of the lumbar spine which showed right-sided L4-L5 and L5-S1 facet arthropathy and mild right foraminal stenosis. He was also evaluated by neurology outpatient at [place] which considered patient's alcoholism as possible reason for his sensorimotor polyneuropathy. Patient denies previous history of seizures, trauma to the head, stroke. He denies headache, double vision, difficulty hearing, weakness or numbness in the upper extremities. He denies family history of neurological disease. Patient reports he travels all around the [place] as his son plays baseball. 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 He currently takes Lyrica for his neuropathy. Past Med Surg Social Fam HX - Past Medical History Medical history: hypertension Psychiatric history: depression - Social History Smoking Status: Current every day smoker Smokeless Tobacco Status: No Alcohol use: heavy, recent Drug use: none Medications and Allergies Metoprolol Succinate [Toprol Xl] 25 mg PO DAILY 02/18/18 [History] Multivits,Ca,Min/Iron/FA/Lycop [Men Under 50 Multivitamin Tab] 1 tab PO DAILY [History] Pregabalin [Lyrica] 75 mg PO BID 02/18/18 [History] 3 Allergy/AdvReac Type Severity Reaction Status Date / Time No Known Allergies Allergy Verified 02/18/18 11:23 All Systems: The remainder of the systems were reviewed and are negative Review of Systems: Constitutional: Denies fever, chills HEENT: Denies headache, vision changes, neck pain, sore throat, rhinorrhea Heart: Denies chest pain palpitations Lungs: Denies shortness of breath cough Abdomen: Denies abdominal pain nausea vomiting diarrhea Back: Denies back pain Kidney: Denies dysuria, hematuria Skin: Denies rash, lesions Extremities: Denies swelling, pain Neuro: As per history of present illness Physical Examination - Vital Signs Vital Signs: Initial Vital Signs Temp Pulse Resp BP Pulse Ox 98.4 F 77 18 103/46 96 02/18/18 11:20 02/18/18 11:20 02/18/18 11:20 02/18/18 11:20 02/18/18 11:20 - Exam Exam: General: without distress HEENT: Head atraumatic, normocephalic, EOMI, PERRL, neck nontender to palpation , absent lymphadenopathy, Moist Mucous Membranes, Heart: Regular rate and rhythm with no murmur Lungs: Clear to auscultation bilaterally Abdomen: Soft nontender, nondistended positive bowel sounds Skin: warm and dry, absent rash Extremities: Absent pedal edema Vascular: Pedal and radial pulses 2 out of 4 - Constitutional General appearance: comfortable - Neurologic Sensorimotor examination: intact Motor examination - right side: 3/5: toe extension (EHL), plantarflexion, 4/5: hip flexors, tibialis Anterior, quadriceps, 5/5: deltoids, biceps, triceps, wrist flexion, wrist extension, health lead Motor examination - left side: 3/5: toe extension (EHL), plantarflexion, 4/5: hip flexors, quadriceps, tibialis Anterior, 5/5: deltoids, biceps, triceps, wrist flexion, wrist extension, health lead Detailed sensory examination: other (Poor sensation to light touch, pinprick and temperature, position sense and bilateral lower extremities from toe to below knee.) Reflex and gait examination: other (Ataxic gait. Bilateral patellar and Achilles reflexes 0 out of 4. Bilateral biceps, triceps, brachial radialis 1 out of 4.) Mental Status Examination: awake, alert, oriented to person, oriented to place, oriented to time, follows commands appropriately, answers questions appropriately, no agnosia, no aphasia, no aproxia Cranial nerve examination: PERRL, EOMI, visual diallo intact, sensory to face intact, mastication intact, no facial asymmetry is present, no dysarthria, hearing is intact symmetrically, soft palate elevates bilaterally upon phonation , gag reflex intact, flexes SCM and trapezius muscles symmetrically with full power, tongue protrudes midline, no atrophy or facial fasiculations present Cerebellar examination: no dysmetria, performs finger to nose and heel to bedoya symmetrically without ataxia, no difficulty with rapid alternating movements Results - Laboratory Findings CBC and BMP: 02/19/18 04:46 02/19/18 04:46 Abnormal lab findings: Abnormal lab results RBC 2.53 M/mcL (4.19-5.50) L 02/19/18 04:46 Hgb 9.8 g/dL (12.9-16.9) L D 02/19/18 04:46 Hct 27.9 % (37.5-50.1) L 02/19/18 04:46 MCV 110.3 fL (83.0-100.0) H 02/19/18 04:46 MCH 38.7 pg (28.0-33.3) H 02/19/18 04:46 Plt Count 127 K/mcL (140-400) L 02/19/18 04:46 Nucleated RBCs/100 WBC 0.4 /100 WBC (0) H 02/18/18 11:58 Platelet Estimate Decreased (Normal) L 02/19/18 04:46 Macrocytosis Present (Not Present) A 02/19/18 04:46 PT 14.3 Seconds (9.4-12.1) H 02/18/18 11:58 Sodium 131 mEq/L (136-145) L 02/19/18 04:46 Potassium 3.3 mEq/L (3.5-5.1) L 02/19/18 04:46 Chloride 93 mEq/L (98-107) L 02/19/18 04:46 BUN 4 mg/dL (6-20) L 02/19/18 04:46 Creatinine 0.65 mg/dL (0.70-1.30) L 02/19/18 04:46 POC Glucose 159 mg/dL (70-99) H 02/18/18 11:55 Calculated Osmolality 269 (280-300) L 02/19/18 04:46 Calcium 8.3 mg/dL (8.6-10.3) L 02/19/18 04:46 Phosphorus 2.2 mg/dL (2.7-4.5) L 02/19/18 04:46 Total Bilirubin 3.2 mg/dL (0.3-1.0) H 02/19/18 04:46 AST 65 Units/L (13-39) H 02/19/18 04:46 Alkaline Phosphatase 165 Units/L (34-104) H 02/19/18 04:46 Creatine Kinase 17 Units/L (30-223) L 02/18/18 11:58 Serum Total Protein 6.0 g/dL (6.4-8.9) L 02/19/18 04:46 Albumin 3.4 g/dL (3.5-5.7) L 02/19/18 04:46 Folate 2.4 ng/mL (3.0-16.0) L 02/19/18 04:46 Ur Specific [place] 1.007 (1.010-1.025) L 02/18/18 12:23 Urine Ketones Trace mg/dL (Negative) H 02/18/18 12:23 Urine Bilirubin Small (Negative) H 02/18/18 12:23 Urine Urobilinogen 2.0 mg/dL (Normal) H 02/18/18 12:23 Ur Squamous Epith Cells Moderate per lpf (None-Few) H 02/18/18 12:23 Acetaminophen < 10 mcg/mL (10-20) L 02/18/18 11:58 Consult Discharge Plan - Plan Referrals: Tunde Beyer MD [Partnered Physician] - 02/27/18 9:45 am
[2018-02-19] MEDS: Amoxicillin/Clavulanate 500 MG TABLET PO SCH (16:52)
[2018-02-19 17:11] LABS: Red Blood Cell,CSF < 0.002 M/mcL
[2018-02-19 17:12] LABS: Appearance,CSF Clear (Clear)
[2018-02-19 17:17] LABS: Glucose,CSF 68 mg/dL (40-70); Total Protein,CSF 79 mg/dL (15-45)
[2018-02-19 18:34] LABS: Lymphocytes,CSF 66.7 %; Monocytes,CSF 33.3 %
[2018-02-20 05:30] LABS: Basophils # 0.1 K/mcL (0.0-0.2); Basophils % 0.7 %; Eosinophils % 0.4 %; Hematocrit 27.7 % (37.5-50.1); Hemoglobin 9.6 g/dL (12.9-16.9); Lymphocytes # 1.3 K/mcL (0.6-4.6); Lymphocytes % 17.9 %; Mean Corpuscular HGB Conc 34.7 g/dL (31.6-35.5); Mean Corpuscular Hemoglobin 38.6 pg (28.0-33.3); Mean Corpuscular Volume 111.2 fL (83.0-100.0); Mean Platelet Volume 11.1 fL (9.4-12.4); Monocytes # 0.5 K/mcL (0.0-1.3); Monocytes % 7.2 %; Neutrophils # 5.4 K/mcL (1.6-8.9); Nucleated Red Blood Cells 0.3 /100 WBC (0); Platelet Count 149 K/mcL (140-400); Red Blood Count 2.49 M/mcL (4.19-5.50); Red Cell Distribution Width 12.7 % (11.5-14.5); Segmented Neutrophils % 71.8 %
[2018-02-20 05:45] LABS: Alanine Aminotransferase 22 Units/L (7-52); Albumin 3.3 g/dL (3.5-5.7); Albumin/Globulin Ratio 1.4 (1.1-2.2); Alkaline Phosphatase 147 Units/L (34-104); Aspartate Amino Transferase 63 Units/L (13-39); BUN/Creatinine Ratio 4 (6-26); Bilirubin,Total 2.5 mg/dL (0.3-1.0); Blood Urea Nitrogen 2 mg/dL (6-20); Calcium 7.9 mg/dL (8.6-10.3); Carbon Dioxide 25 mEq/L (23-29); Chloride 99 mEq/L (98-107); Globulin 2.4 g/dL (2.4-3.5); Glucose 90 mg/dL (70-105); Magnesium 1.4 mg/dL (1.6-2.6); Osmolality,Calculated 274 (280-300); Potassium 3.2 mEq/L (3.5-5.1); Sodium 134 mEq/L (136-145); Total Protein 5.7 g/dL (6.4-8.9); eGFR For African Americans > 60 (> 60); eGFR For Non-African Americans > 60 (> 60)
[2018-02-20 05:47] LABS: Anisocytosis 1+ (Not Present); Macrocytosis Present (Not Present); Platelet Estimate Normal (Normal)
[2018-02-20] MEDS: *HR* Enoxaparin 40 MG/0.4 ML SYRINGE SQ SCH (06:17)
[2018-02-20 07:10] VITALS: BP 114/82
[2018-02-20 09:06] LABS: Estimated Average Glucose 100 mg/dl; Hemoglobin A1C 5.1 %
--- NOTE | 2018-02-20 09:19 | Neurology Progress Note ---
Date of Encounter: 02/20/18 Time of Encounter: 09:15 Assessment and Plan (1) Sensorimotor neuropathy Current Visit: Yes Status: Acute Patient was able to walk independently today. His upper extremity plexus are 2 out of 4. He still is areflexic in his lower extremities. Patient CSF showed mildly elevated protein. CSF Gram stain was negative. Patient's cervical MRI was negative for any acute changes. CSF Culture is pending. We are still awaiting some lab results ordered yesterday. Furthermore we have added HIV, RPR, Lyme disease, heavy metal poisoning assay. Patient will need physical rehabilitation. Most likely patient's presentation is secondary to chronic alcohol use. At this point we do not suspect CIDP as patient has preserved upper extremity reflexes. He is able to ambulate independently. He will not need IVIG. . Subjective Principal diagnosis: Alcoholic polyneuropathy Interval history: This morning patient was walking out of the bathroom independently when I entered the room. He reports he is able to walk without falling currently. Patient was walked in the hallway and did not have any falls. He denies any acute overnight events. He reports no hobbies. He reports since his that he has not had any sexual activity since his divorce. Objective - Constitutional Vitals: Temp Pulse Resp BP Pulse Ox 99.1 F 81 16 114/82 93 02/20/18 07:05 02/20/18 07:05 02/20/18 07:05 02/20/18 07:05 02/20/18 07:05 - Neurological Exam Sensorimotor examination: Present: intact Motor examination - right side: 4/5: hip flexors, tibialis Anterior, quadriceps , toe extension (EHL), plantarflexion, 5/5: deltoids, biceps, triceps, wrist flexion, wrist extension Motor examination - left side: 3/5: toe extension (EHL), plantarflexion, 4/5: hip flexors, quadriceps, tibialis Anterior, 5/5: deltoids, biceps, triceps, wrist flexion, wrist extension, mobile nurse Sensation intact: Present: other (Poor sensation to light touch, pinprick and temperature, position sense and bilateral lower extremities from toe to below knee.) Reflex and gait examination: other (Ataxic gait. Bilateral patellar and Achilles reflexes 0 out of 4. Bilateral biceps, triceps, brachial radialis 2 out of 4.) Mental Status Examination: Present: awake, alert, oriented to person, oriented to place, oriented to time, follows commands appropriately, answers questions appropriately, no agnosia, no aphasia, no aproxia Cranial nerve examination: Present: PERRL, EOMI, visual diallo intact, sensory to face intact, mastication intact, no facial asymmetry is present, no dysarthria, hearing is intact symmetrically, soft palate elevates bilaterally upon phonation, gag reflex intact, flexes SCM and trapezius muscles symmetrically with full power, tongue protrudes midline, no atrophy or facial fasiculations present Cerebellar examination: Present: no dysmetria, performs finger to nose and heel to bedoya symmetrically without ataxia, no gait ataxia, no difficulty with rapid alternating movements Results - Laboratory Findings CBC and BMP: 02/20/18 04:36 02/20/18 04:36 Abnormal lab findings: Abnormal lab results RBC 2.49 M/mcL (4.19-5.50) L 02/20/18 04:36 Hgb 9.6 g/dL (12.9-16.9) L 02/20/18 04:36 Hct 27.7 % (37.5-50.1) L 02/20/18 04:36 MCV 111.2 fL (83.0-100.0) H 02/20/18 04:36 MCH 38.6 pg (28.0-33.3) H 02/20/18 04:36 Nucleated RBCs/100 WBC 0.3 /100 WBC (0) H 02/20/18 04:36 Anisocytosis 1+ (Not Present) A 02/20/18 04:36 Macrocytosis Present (Not Present) A 02/20/18 04:36 PT 14.3 Seconds (9.4-12.1) H 02/18/18 11:58 Sodium 134 mEq/L (136-145) L 02/20/18 04:36 Potassium 3.2 mEq/L (3.5-5.1) L 02/20/18 04:36 BUN 2 mg/dL (6-20) L 02/20/18 04:36 Creatinine 0.55 mg/dL (0.70-1.30) L 02/20/18 04:36 BUN/Creatinine Ratio 4 (6-26) L 02/20/18 04:36 POC Glucose 159 mg/dL (70-99) H 02/18/18 11:55 Calculated Osmolality 274 (280-300) L 02/20/18 04:36 Calcium 7.9 mg/dL (8.6-10.3) L 02/20/18 04:36 Phosphorus 2.2 mg/dL (2.7-4.5) L 02/19/18 04:46 Magnesium 1.4 mg/dL (1.6-2.6) L 02/20/18 04:36 Total Bilirubin 2.5 mg/dL (0.3-1.0) H 02/20/18 04:36 AST 63 Units/L (13-39) H 02/20/18 04:36 Alkaline Phosphatase 147 Units/L (34-104) H 02/20/18 04:36 Creatine Kinase 17 Units/L (30-223) L 02/18/18 11:58 Serum Total Protein 5.7 g/dL (6.4-8.9) L 02/20/18 04:36 Albumin 3.3 g/dL (3.5-5.7) L 02/20/18 04:36 Ur Specific [place] 1.007 (1.010-1.025) L 02/18/18 12:23 Urine Ketones Trace mg/dL (Negative) H 02/18/18 12:23 Urine Bilirubin Small (Negative) H 02/18/18 12:23 Urine Urobilinogen 2.0 mg/dL (Normal) H 02/18/18 12:23 Ur Squamous Epith Cells Moderate per lpf (None-Few) H 02/18/18 12:23 CSF Tot Nucleated Cells 6 TNC/mcL (0-5) H 02/19/18 Unknown CSF Total Protein 79 mg/dL (15-45) H 02/19/18 Unknown Acetaminophen < 10 mcg/mL (10-20) L 02/18/18 11:58 Consult Discharge Plan - Plan Referrals: Tunde Beyer MD [Partnered Physician] - 02/27/18 9:45 am
[2018-02-20] MEDS: Folic Acid 1 MG TABLET PO SCH (09:41)
[2018-02-20] MEDS: Amoxicillin/Clavulanate 500 MG TABLET PO SCH (09:41)
[2018-02-20] MEDS: Thiamine (B-1) 100 MG TABLET PO SCH (09:41)
[2018-02-20] MEDS: Vitamin B Complex/Vit C/Vit E 1 EACH TABLET PO SCH (09:42)
--- NOTE | 2018-02-20 09:51 | Procedure Note ---
Date of procedure: 02/19/18 Pre-op diagnosis: b/l LE neuropathy Post-op diagnosis: same Procedure: A time-out was completed verifying correct patient, procedure, site, positioning , and special equipment if applicable. The patient was placed in the left lateral decubitus position in a semi- position with help from the nursing staff. The area was cleansed and draped in usual sterile fashion. 1% lidocaine was used anesthetize the surrounding skin area. A 20-gauge 3.5-inch spinal needle was placed in the L4-L5 interspace. Clear cerebral spinal fluid was obtained. Four tubes were filled with 4 mL of CSF. These were sent for the usual tests, including 1 tube to be held for further analysis if needed. Dr. Pollock was present for the entire procedure Anesthesia: local Surgeon: Robi Cherry Was there an accounts receivable assistant present: Yes Ppap Coordinator: Trinity Pollock Estimated blood loss (cc): 2 Specimen: csf Pathology: none sent Condition: stable Disposition: floor
--- NOTE | 2018-02-20 10:41 | Discharge Summary ---
<Floresita Brandon - Last Filed: 02/20/18 13:01> Orders not resulted at time of discharge: Pending orders 02/19/18 Culture,CSF [RM] Routine Gram Stain [RM] Routine 02/19/18 12:05 Homocysteine Routine MMA (VIT B12 STATUS) Routine 02/20/18 04:36 CLAUS IgG BENOIT rflx IFA AM 0400 Protein Electrophoresis AM 0400 02/20/18 05:58 Vitamin B6 (Pyridoxal 5-Phos AM 0400 02/20/18 09:12 Borrelia burgdorferi Panel CSF Routine Heavy Metals Profile Routine VDRL reflex titer, CSF Routine 02/20/18 09:13 HIV-1&2 Antibody & p24 Ag Routine Date of Encounter: 02/20/18 Time of Encounter: 10:17 - Discharge Diagnosis (1) Alcoholism Priority: Primary Status: Acute (2) Colitis Priority: Secondary Status: Acute (3) Electrolyte abnormality Priority: Secondary Status: Acute (4) Bronchiolitis Priority: Secondary Status: Acute (5) Hypertension Priority: Secondary Status: Acute Qualifiers: Hypertension type: essential hypertension Qualified Code(s): I10 - Essential (primary) hypertension (6) DVT prophylaxis Priority: Secondary Status: Acute (7) Paresthesia of both lower extremities Priority: Secondary Status: Acute (8) Neuropathy due to nutritional deficiency Priority: Secondary Status: Suspected (9) Anemia, macrocytic, nutritional Priority: Secondary Status: Acute (10) Tobacco abuse Priority: Secondary Status: Chronic Hospital course: Mr. Diaz is a 42 year old male with a history of alcoholism who presents with 4 months history of progressive bilateral lower extremity neuropathy. This has been going on since about October. He was apparently worked up in [facility] in November with an MRI of the lumbar spine that demonstrated osteo- arthritis, DJD. He has notable peripheral neuropathy with altered sensation from the foot all the way to distal knee. Symptoms and progressive for the last 4 months leading to inability to ambulate. He drinks 3-4 cups of liquor Capt. Ramiro almost every day. He reported that he does not eat very much and has lost about 38 pounds. He has a history of chronic alcoholism since in his teens. In the ED he was found to be in severe electrolyte disturbance; sodium 130, potassium 2.9, magnesium 1.1, phosphorus 1.9. EKG personally with rate of 122, sinus tachycardia, ST changes nonspecific. Head CT in ED was negative for intracranial abnormality. His electrolytes such as magnesium, potassium, phosphorus, folate were supplemented. Chest CT demonstrated concerns for bronchiolitis in the right lower lobe and right upper lobe. The patient is an alcoholic which is concerning for aspiration so he was started on initially and then changed to Augmentin. Abdominal CT shows findings for questionable colitis however the patient was clinically asymptomatic. Since his bilirubin was elevated in ultrasound is ordered and demonstrated moderate gallbladder sludge. Clinically he was asymptomatic and had no abdominal pain. He was admitted for further evaluation. He was also placed on CIWA protocol due to severe alcohol dependence. Neurology was consulted and performed a lumbar puncture that demonstrated CSF with minimally elevated protein and few WBC. They believe the bilateral paresthesias likely to be secondary to alcohol abuse and malnutrition. Unlikely to be CIDP. Labs ordered were including folate, vitamin B12, MMA, homocysteine, HIV, RPR, Lyme disease, heavy metal poisoning assay, borrelia burgdoreri CSF culture, protein electrophoresis. On physical exam he demonstrated decreased sensation from knees down bilaterally. No proprioception of lower extremities. Bilateral patellar and Achilles reflexes 0 /4, preserved upper extremity DTR. PT/OT evaluated the patient and recommended discharged to rehabilitation however the patient refused and wanted to go home. Upon discharge the patient was able to walk independently. He was instructed to follow up with his PCP. He was given an appointment to follow up with neurology outpatient in a week or 2 since the lab work when likely be resulted then. He was given outpatient PT/OT rehab appointment. It was highly recommended to him to stop drinking alcohol. He was given an antibiotic to finish his treatment for his bronchiolitis. Upon discharge patient was alert and oriented times 3 with full capacity and stated a clear understanding of the treatment plan. Discharge discussed with: patient, social work Time spent discussing smoking cessation with patient: more than 10 minutes - Time Spent with Patient Total time spent providing and/or coordinating discharge services: Greater than 30 minutes - Discharge Medications Prescriptions: Amoxicillin/Clavulanate [Augmentin] 500 mg PO BIDWM #15 tablet Folic Acid 1 mg PO DAILY #30 tablet Home Medications: Metoprolol Succinate [Toprol Xl] 25 mg PO DAILY 02/18/18 [History] Multivits,Ca,Min/Iron/FA/Lycop [Men Under 50 Multivitamin Tab] 1 tab PO DAILY [History] Pregabalin [Lyrica] 75 mg PO BID 02/18/18 [History] Amoxicillin/Clavulanate [Augmentin] 500 mg PO BIDWM #15 tablet 02/20/18 [Rx] Folic Acid 1 mg PO DAILY #30 tablet 02/20/18 [Rx] Allergies/Adverse Reactions: 3 Allergy/AdvReac Type Severity Reaction Status Date / Time No Known Allergies Allergy Verified 02/18/18 11:23 Date of admission: 02/18/18 18:46 Primary care physician: PCP NONE Consults: 02/19/18 12:01 Consult to Neurology [CONS] Routine Consulting Provider: [facility] Reason for Consult: Bilateral lower extremity paresthesias. May be secondary to alcohol abuse Call Completed: Yes Discharging clinician: Jeremiah Pina Anticipated date of discharge: 02/20/18 - Constitutional Vitals: Temp Pulse Resp BP Pulse Ox 99.1 F 81 16 114/82 93 02/20/18 07:05 02/20/18 07:05 02/20/18 07:05 02/20/18 07:05 02/20/18 07:05 Exam: Gen.: Vitals noted. No acute distress. AAOx3 HEENT: oropharynx clear, Normocephalic, atraumatic Cardiac: RRR, no murmur, +S1/S2 Pulmonary: CTA bilaterally except for rights lower lobe and upper lobe inspiratory wheezes, no rales or rhonchi, equal chest expansion Abdomen: soft, nontender, Bowel sounds noted, no guarding MSK: ROM intact, no joint swelling noted Extremities: no BLE edema, nontender calf, no cyanosis Neuro: A&Ox3, moves all extremities, bilaterally kneecap down has decreased sensation, no proprioception of lower extremities. Psych: Appropriate mood and behavior - Patient Status Disposition: Home, Self-Care Condition: Fair Functional capacity at discharge: uses cane/walker Overall status at discharge: patient is back to baseline - Discharge Instructions Follow Up With: [facility] [Outside] - 02/24/18 8:30 am ( ) Tunde Beyer MD [Partnered Physician] - 02/27/18 9:45 am Shmuel Adhikari MD [Partnered Physician] - 03/02/18 1:45 pm Forms: Work/School Release Additional Instructions: Finish antibiotics to completion take folic acid daily stop drinking alcohol follow up with neurology outpatient follow-up with your PCP in 1 to 2 weeks - Diet and Activity Activity: ambulate only with your walker, as per physical therapy, resume usual activities as tolerated Diet: advance to your usual diet <Jeremiah Pina Diana - Last Filed: 02/20/18 18:05> - NOTES TO OUTPATIENT PROVIDER Notes to Outpatient Provider: Admitted for neuropathy symptoms. Continued work up in progress. Advised alcohol cessation. Orders not resulted at time of discharge: Pending orders 02/19/18 Culture,CSF [RM] Routine Gram Stain [RM] Routine 02/19/18 12:05 Homocysteine Routine MMA (VIT B12 STATUS) Routine 02/20/18 04:36 CLAUS IgG BENOIT rflx IFA AM 0400 Protein Electrophoresis AM 0400 02/20/18 05:58 Vitamin B6 (Pyridoxal 5-Phos AM 0400 02/20/18 09:12 Borrelia burgdorferi Panel CSF Routine VDRL reflex titer, CSF Routine 02/20/18 10:34 Heavy Metals Profile Routine Date of Encounter: 02/20/18 - Discharge Diagnosis (1) Neuropathy due to nutritional deficiency Priority: Primary Status: Suspected (2) Anemia, macrocytic, nutritional Status: Chronic (3) Alcoholism Status: Chronic (4) Colitis Status: Ruled-out (5) Electrolyte abnormality Status: Acute (6) Bronchiolitis Status: Acute (7) Hypertension Status: Chronic Qualifiers: Hypertension type: essential hypertension Qualified Code(s): I10 - Essential (primary) hypertension (8) Tobacco abuse Status: Chronic (9) Hypokalemia Priority: Secondary Status: Resolved (10) Hypomagnesemia Priority: Secondary Status: Resolved (11) Paresthesia of both lower extremities Status: Chronic (12) DVT prophylaxis Status: Chronic Hospital course: Mr. Diaz is a 42 year old male - Time Spent with Patient Total time spent providing and/or coordinating discharge services: 39min Date of admission: 02/18/18 18:46 Primary care physician: PCP NONE Consults: 02/19/18 12:01 Consult to Neurology [CONS] Routine Consulting Provider: [facility] Reason for Consult: Bilateral lower extremity paresthesias. May be secondary to alcohol abuse Call Completed: Yes - Constitutional Vitals: Temp Pulse Resp BP Pulse Ox 98.4 F 105 16 114/82 100 02/20/18 10:44 02/20/18 10:44 02/20/18 10:44 02/20/18 10:44 02/20/18 10:44 - Attending Attestation I examined this patient and my medical decision-making was reviewed with the Resident Physician on 02/20/18. I agree with the documented findings, disposition and treatment plan as described except to the extent set forth below. Mr Diaz has been admitted for bilateral lower extremity weakness and neuropathy. He has been recommended rehab but does not want to go there. He is currently afebrile and ready for discharge home with outpatient follow up. He has been counselled on alcohol cessation. Exam alert Comfortable Mucus membranes dry Heart not tachy No wheeze Plan D/C home today Follow up with neuro for further test results. Folate supplement.
[2018-02-22 18:46] LABS: Alpha 2 Globulin (PEP) 0.64 g/dL (0.48-1.05); Beta Globulin (PEP) 0.74 g/dL (0.48-1.10)
[2018-02-23 10:28] LABS: IFE Reflexed NOT DONE
[2018-02-23 10:32] LABS: ANA IgG by ELISA NONE DETECTED (None Detected)
[2018-02-24 08:06] LABS: Arsenic <10.0 ug/L (0.0-13.0); Cadmium <1.0 ug/L (0.0-5.0); Mercury <3 ug/L (0-10)
== END 2018-02-20 14:24 | disposition home or self-care (01) | DRG 74 ==
LOC: 3ANU 11:18 → EMEROO 11:18 → 3ANU 18:15 → SUATTDRO 18:46
PROVIDERS: ADMIT Internal Medicine; ATTEND Internal Medicine

== ENCOUNTER 2018-02-21 18:44 | Observation (INO) ==
[2018-02-21] MEDS ORDERED: *HR* LORazepam 2 MG/ML VIAL IVP PRN ×2 (21:37)
[2018-02-21] MEDS ORDERED: Acetaminophen 325 MG TABLET PO PRN (21:38)
[2018-02-21] MEDS ORDERED: Naloxone 0.4 MG/ML INJ IVP PRN (21:38)
--- NOTE | 2018-02-21 21:47 | Internal Med History&Physical ---
Date of Encounter: 02/21/18 Time of Encounter: 21:40 Internal Medicine - H&P: HPI Chief complaint: Seizures Admitted From: Direct Admit Plans for Post Hospital Care: Home History of present illness: Mr. Diaz is a 42 year old male with history of alcohol abuse since his teens who is transferred from [facility] after a witness missael schofield. The patient was here and discharged yesterday. He refused rehab and went home. He was treated here for alcohol withdrawals, bronchitis, and lower extremity weakness. He was seen by neurology and work up was unrevealing including a CT had, LP, cervical spine MRI. It was finally deemed that his muscle atrophy and weakness are due to long history of alcohol use. He was at his son's baseball game today with his parents. His parents help him with ambulation and he uses a walker as well. He suddenly started having what was described as convulsions. He regained consciousness after that episode. He is unsure how long it lasted. EMS were cold and apparently a second episode happened which he does not remember. He experienced some confusion afterwards and next thing he remembers is that he is at [facility]. No urinary or bowel incontinence during those episodes. When he presented to [facility] he was hemodynamically stable and had no further episodes. CT head was unremarkable. Laboratory workup was done which showed white count of 17,000 and liver function testing that was consistent with alcohol use. Creatinine was 1.23. Sodium 135. Potassium was 3.5. CK was 32. Alcohol level was less than 10 and the patient tells me that he has not had a drink for about a week now. He denies any fever, chills, nausea, vomiting, chest pain, shortness of breath, headache, blurry vision, abdominal pain, diarrhea, constipation, urinary symptoms. Past Med Surg Social Fam HX - Past Medical History Medical history: hypertension Psychiatric history: depression - Social History Smoking Status: Current every day smoker Smokeless Tobacco Status: No Alcohol use: heavy, recent Drug use: none Internal Medicine - H&P: Meds Metoprolol Succinate [Toprol Xl] 25 mg PO DAILY 02/18/18 [History] Multivits,Ca,Min/Iron/FA/Lycop [Men Under 50 Multivitamin Tab] 1 tab PO DAILY [History] Pregabalin [Lyrica] 150 mg PO BID 02/18/18 [History] Amoxicillin/Clavulanate [Augmentin] 500 mg PO BIDWM #15 tablet 02/20/18 [Rx] Folic Acid 1 mg PO DAILY #30 tablet 02/20/18 [Rx] 3 Allergy/AdvReac Type Severity Reaction Status Date / Time No Known Allergies Allergy Verified 02/18/18 11:23 All Systems PM: A 10-system review of systems was performed and is negative for pertinent findings except as documented above in the HPI. Review of systems: All systems reviewed are negative except for as mentioned above - Constitutional Vitals: Temp Pulse Resp BP Pulse Ox 98.9 F 89 16 102/63 98 02/21/18 21:12 02/21/18 21:12 02/21/18 21:12 02/21/18 21:12 02/21/18 21:12 Exam: GEN: NAD HEENT: AT, NC, No cyanosis, oral mucosa is moist, No JVD Lymphatics: No lymphadenoapthy Eyes: Extrocular muscles intact, anicteric CVS:RRR. S1, S2, No m/r/g RESP: CTAB ABD: Soft, NT, ND, +BS EXT: No edema, No rashes, 2+ DP NEURO: Nonfocal, CN II-XII intact, the patient has no sensory deficits to my light touch. He has significant muscle atrophy in the lower extremities and his strength is about 3 out of 5 at best in the lower extremities bilaterally. I started the patient up and walked him in the halls and he is very unsteady on his feet with very small steps that he takes when he walks. Psych: Cooperative, Not anxious or depressed - Assessment and plan (1) Seizure Current Visit: Yes Status: Acute Assessment and plan: Likely withdrawal seizures. No history of previous seizures. The patient tells me that his last drink was about a week ago or so. Not exactly sure if this is true as the patient was actually admitted here on 02/18 which is only 3 days ago, however his alcohol level at that time was also not elevated. Either way for now we will consult neurology. We will check an MRI brain as that was not done last visit. We will place the patient on Ativan per [facility]. We will leave EEG ordering to neurology if they deem it necessary. (2) Lower extremity weakness Current Visit: Yes Status: Acute Assessment and plan: Extensive workup done last visit including imaging studies, LP, and metabolic workup. He has normal TSH, folate levels, and B12 levels. Neurology was following and deemed this secondary to alcohol use. Consider MRI of lower spine. He had a cervical spine MRI done last visit. PTOT to see. Patient would benefit from rehabilitation. Qualifiers: Laterality: bilateral Qualified Code(s): R29.898 - Other symptoms and signs involving the musculoskeletal system (3) IRISH (acute kidney injury) Current Visit: Yes Status: Acute Assessment and plan: IV fluids. avoid nephrotoxins. labs in am. (4) Alcoholism Current Visit: No Status: Chronic Assessment and plan: Patient wants to quit. Will place the patient on CIWa protocol and monitor for withdrawals. We will start the patient on folic acid, multivitamins, and thiamine. Social work consult. (5) Hypertension Current Visit: No Status: Chronic Assessment and plan: Hold his beta wandy for now as his blood pressure is borderline with a blood pressure 102/63 Qualifiers: Hypertension type: essential hypertension Qualified Code(s): I10 - Essential (primary) hypertension (6) Bronchitis Current Visit: No Status: Acute Assessment and plan: Patient was discharged on Augmentin. We will resume that. Patient is afebrile. (7) DVT prophylaxis Current Visit: No Status: Chronic Assessment and plan: Heparin subcutaneous - Time Spent With Patient Total time spent is greater than 50% in coordination of care (as documented) at patient's floor/unit and/or counseling patient:
[2018-02-21 22:39] LABS: Basophils % 0.4 %; Eosinophils # 0.1 K/mcL (0.0-0.6); Eosinophils % 0.6 %; Hematocrit 28.8 % (37.5-50.1); Hemoglobin 9.8 g/dL (12.9-16.9); Immature Granulocytes % 1.7 % (0-4); Lymphocytes # 1.7 K/mcL (0.6-4.6); Lymphocytes % 17.1 %; Mean Corpuscular Hemoglobin 39.2 pg (28.0-33.3); Mean Corpuscular Volume 115.2 fL (83.0-100.0); Mean Platelet Volume 10.9 fL (9.4-12.4); Monocytes # 1.1 K/mcL (0.0-1.3); Neutrophils # 6.9 K/mcL (1.6-8.9); Nucleated Red Blood Cells 0.2 /100 WBC (0); Platelet Count 168 K/mcL (140-400); Red Cell Distribution Width 13.5 % (11.5-14.5); Segmented Neutrophils % 69.2 %
[2018-02-21 22:44] LABS: INR 1.3; Prothrombin Time 14.4 Seconds (9.4-12.1)
[2018-02-21 22:56] LABS: Macrocytosis Present (Not Present); Platelet Estimate Normal (Normal)
[2018-02-21 22:57] LABS: Alanine Aminotransferase 27 Units/L (7-52); Albumin 3.4 g/dL (3.5-5.7); Albumin/Globulin Ratio 1.3 (1.1-2.2); Alkaline Phosphatase 152 Units/L (34-104); Aspartate Amino Transferase 77 Units/L (13-39); BUN/Creatinine Ratio 6 (6-26); Bilirubin,Total 2.2 mg/dL (0.3-1.0); Blood Urea Nitrogen 5 mg/dL (6-20); Calcium 8.6 mg/dL (8.6-10.3); Carbon Dioxide 25 mEq/L (23-29); Chloride 97 mEq/L (98-107); Globulin 2.6 g/dL (2.4-3.5); Glucose 99 mg/dL (70-105); Magnesium 1.6 mg/dL (1.6-2.6); Osmolality,Calculated 269 (280-300); Potassium 2.8 mEq/L (3.5-5.1); Sodium 131 mEq/L (136-145); eGFR For African Americans > 60 (> 60); eGFR For Non-African Americans > 60 (> 60)
[2018-02-21] MEDS: *HR* Heparin 5,000 UNIT/ML VIAL SQ SCH (23:02)
[2018-02-21] MEDS: 0.9 % Sodium Chloride 1,000 ML IVC SCH (23:02)
[2018-02-22] MEDS ORDERED: Potassium Chloride 40 MEQ, Lidocaine 1% 2 ML in D5% in Water 500 ML IVPB ONE (04:00)
[2018-02-22 05:17] LABS: Basophils % 0.3 %; Eosinophils % 0.5 %; Hematocrit 27.8 % (37.5-50.1); Hemoglobin 9.4 g/dL (12.9-16.9); Immature Granulocytes % 1.7 % (0-4); Lymphocytes # 1.4 K/mcL (0.6-4.6); Lymphocytes % 15.7 %; Mean Corpuscular HGB Conc 33.8 g/dL (31.6-35.5); Mean Corpuscular Volume 115.4 fL (83.0-100.0); Monocytes % 11.8 %; Platelet Count 173 K/mcL (140-400); Red Blood Count 2.41 M/mcL (4.19-5.50); Red Cell Distribution Width 13.6 % (11.5-14.5)
[2018-02-22 05:32] LABS: BUN/Creatinine Ratio 7 (6-26); Blood Urea Nitrogen 5 mg/dL (6-20); Calcium 8.7 mg/dL (8.6-10.3); Carbon Dioxide 23 mEq/L (23-29); Chloride 100 mEq/L (98-107); Glucose 110 mg/dL (70-105); Magnesium 1.7 mg/dL (1.6-2.6); Osmolality,Calculated 272 (280-300); Sodium 132 mEq/L (136-145); eGFR For African Americans > 60 (> 60); eGFR For Non-African Americans > 60 (> 60)
[2018-02-22 05:53] LABS: Anisocytosis 1+ (Not Present); Macrocytosis Present (Not Present); Platelet Estimate Normal (Normal)
[2018-02-22] MEDS: *HR* Heparin 5,000 UNIT/ML VIAL SQ SCH ×3 (06:51→20:34)
[2018-02-22] MEDS: Vitamin B Complex/Vit C/Vit E 1 EACH TABLET PO SCH (08:20)
[2018-02-22] MEDS: Pregabalin 75 MG CAPSULE PO SCH ×2 (08:20→20:34)
[2018-02-22] MEDS: Thiamine (B-1) 100 MG TABLET PO SCH (08:20)
[2018-02-22] MEDS: Amoxicillin/Clavulanate 500 MG TABLET PO SCH ×2 (08:21→18:16)
[2018-02-22] MEDS: Folic Acid 1 MG TABLET PO SCH (08:21)
--- NOTE | 2018-02-22 09:21 | Internal Med Progress Note ---
Date of Encounter: 02/22/18 Time of Encounter: 07:50 - Assessment and plan (1) Seizure Current Visit: Yes Status: Acute Assessment and plan: Patient presented with seizure-like activity X2 on the son's baseball game. No prior history of seizures. Patient is an alcoholic reports that he has not been drinking for approximately the past week. This is likely withdrawal seizures. He has seen neurology on prior admissions due to per stages of both lower extremities of unclear etiology. This is also continuing throughout the stay. Continue neurology consult-awaiting further recommendations Awaiting MRI of the brain study results Implement [facility] protocol Seizure precautions Neuro assessments every shift Continuous telemetry Recheck labs in the morning (2) Alcoholism Current Visit: Yes Status: Chronic Assessment and plan: Discussed the need for alcohol cessation this morning. He reports that he would like to quit drinking however is not willing to undergo counseling. Presented like to quit drinking on his own volition. I offered supportive services and the patient declined. (3) Paresthesia of both lower extremities Current Visit: Yes Status: Chronic Assessment and plan: Patient has ongoing paresthesia of bilateral lower extremity. Extensive workup completed during last admission including imaging studies, LP and metabolic workup. Patient has been found to have normal TSH, folate and B12 levels. As mentioned previously, This has been worked up per neurology during a recent admission, etiology remains unclear. Likely due to chronic alcohol abuse however, could also be due to chronic inflammatory demyelinating polyneuropathy ; however, neurology did not feel that CIDP was likely the diagnosis as the patient has preserved DTRs in his arms Paresthesias remain the same as during prior stay, no worsening of symptoms. Recent workup included spinal tap with the results of; CSF with a WBC of 6 and protein level of 78 Continue physical therapy Neurology consulted (4) Bronchitis Current Visit: Yes Status: Acute Assessment and plan: During his last admission the Chest CT demonstrated concerns for bronchiolitis in the right lower lobe and right upper lobe.This was thought to be infective and He was discharged on Amoxacillin. Resume amoxicillin while inpatient. (5) Hypertension Current Visit: Yes Status: Chronic Assessment and plan: Blood pressure remained stable. Patient's beta wandy was held due to borderline hypotension. SBP still borderline low. Continue to hold beta wandy for now. Continue to closely monitor Qualifiers: Hypertension type: essential hypertension Qualified Code(s): I10 - Essential (primary) hypertension (6) Lower extremity weakness Current Visit: Yes Status: Acute Assessment and plan: see plan above Qualifiers: Laterality: bilateral Qualified Code(s): R29.898 - Other symptoms and signs involving the musculoskeletal system (7) Electrolyte abnormality Current Visit: Yes Status: Acute Assessment and plan: Hypokalemia with potassium of 3.0 this morning 60 MEQ oral potassium 1 dose now Review of telemetry reveals no abnormalities overnight Check magnesium now Continuous telemetry Recheck in the morning recheck mag in the morning (8) Anemia, macrocytic, nutritional Current Visit: Yes Status: Chronic Assessment and plan: Microcytic nutritional anemia likely secondary to alcoholism No active bleeding noted, hemodynamically stable Continue to monitor (9) Neuropathy due to nutritional deficiency Current Visit: Yes Status: Suspected (10) Tobacco abuse Current Visit: Yes Status: Chronic Assessment and plan: Discussed tobacco cessation (11) DVT prophylaxis Current Visit: Yes Status: Chronic Assessment and plan: Continue Heparin subcutaneous - Time Spent With Patient Total time spent is greater than 50% in coordination of care (as documented) at patient's floor/unit and/or counseling patient: Greater than 35 minutes - Subjective Interval history: Mr. Diaz is a 42 year old male with a history of alcohol abuse since his teens. He was transferred from [facility] after having 2 events of a witnessed seizure with convulsion-like activity while at his son's game. The patient was just recently discharged from [place] and treated for alcoholism and BLE paresthesias. During the recent previous stay the patient did not have any seizure-like activity. He was mildly confused and postictal on arrival. EtOH less than 10 on labs. Patient reports he has not had any alcohol for approximately 1 week. Seen and examined at bedside today. Reports that he feels better today but is continuing to have bilateral lower extremity paresthesias. Denies any SI/HI, denies any auditory/visual hallucinations, does not appear agitated. He does have some bilateral upper and lower extremity mild tremors. He reports that he has never gone through withdrawal when he is attempted to stop drinking. - Constitutional Vitals: Temp Pulse Resp BP Pulse Ox 98.2 F 86 16 109/75 98 02/22/18 06:34 02/22/18 06:34 02/22/18 06:34 02/22/18 06:34 02/22/18 06:34 General appearance: Present: A&O X 3 - Head Head exam: Present: atraumatic, normocephalic - Eye Eye exam: Present: EOMI, PERRL, conjuntiva pink, sclera anicteric Pupils: Present: PERRL - Neck Neck exam general surgery: Present: supple, trachea midline. Absent: lymphadenopathy - Respiratory Respiratory exam: Present: CTAB. Absent: accessory muscle use, rales, rhonchi, wheezes - Cardiovascular Cardiovascular exam: Present: RRR, +S1, +S2. Absent: diastolic murmur, gallop, rubs, systolic murmur - GI/Abdominal GI/Abdominal exam: Present: normal bowel sounds, soft, no peritoneal signs. Absent: distended, tenderness - Extremities Exam Extremities exam: Present: warm, radial pulses palpable and symmetrical. Absent : calf tenderness, cyanotic, pedal edema - Neurological Exam Neurological exam: Present: CN II-XII intact, oriented X3, no focal deficits. Absent: strengths equal and symetr throughout, pronater drift, facial droop, speech deficit Additional comments: Bilateral upper and bilateral lower extremity peripheral tremors present Bilateral lower extremity is able to overcome gravity, however, unable to overcome resistance - Expanded Neurological Exam Neuro motor strength exam: LLE: 2/1, RLE: 2/1 DTR: achilles tendon (L): 0, achilles tendon (R): 0, patellar (L): 0, patellar ( R): 0 Coma Scale Eye Opening: Spontaneous Coma Scale Motor Response: Obeys Commands Coma Scale Verbal Response: Oriented Coma Scale Total: 15 - Skin Skin exam: Present: dry, intact Internal Medicine: Result - Labs CBC & Chem 7: 02/22/18 04:47 02/22/18 04:47 Labs: Short CBC 02/21/18 02/22/18 Range/Units 22:15 04:47 WBC 9.9 8.6 (4.3-11.1) K/mcL Hgb 9.8 L 9.4 L (12.9-16.9) g/dL Hct 28.8 L 27.8 L (37.5-50.1) % Plt Count 168 173 (140-400) K/mcL Neutrophils # 6.9 6.0 (1.6-8.9) K/mcL BMP 02/21/18 02/22/18 22:15 04:47 Sodium 131 L 132 L Potassium 2.8 L 3.0 L Chloride 97 L 100 Carbon Dioxide 25 23 BUN 5 L 5 L Creatinine 0.88 0.72 Glucose 99 110 H Calcium 8.6 8.7 Liver Function 02/21/18 Range/Units 22:15 Total Bilirubin 2.2 H (0.3-1.0) mg/dL AST 77 H (13-39) Units/L ALT 27 (7-52) Units/L Alkaline Phosphatase 152 H (34-104) Units/L Albumin 3.4 L (3.5-5.7) g/dL - ABG Interpretation ABG results: PT/INR, D-dimer PT 14.4 Seconds (9.4-12.1) H 02/21/18 22:15 Consult Discharge Plan - Plan Referrals: Tunde Beyer MD [Primary Care Provider] - 02/27/18 9:45 am Kiko Tavera MD [Non-Partnered Physician] - 02/26/18 2:15 pm Shmuel Adhikari MD [Partnered Physician] - 03/02/18 1:45 pm
--- NOTE | 2018-02-22 15:01 | Neurology - Consult Note ---
Date of Encounter: 02/22/18 Time of Encounter: 12:53 Assessment and Plan (1) Seizure Current Visit: Yes Status: Acute This patient who has an history of heavy alcohol abuse since age of 19 also noted to have significant sensorimotor peripheral neuropathy admitted with this new onset of seizures apparently has 2 events associated with jerking and shaking but not prolonged postictal period. Considering that clinical context and that he had his last drink about 6 days ago still is a possibility that he could have of withdrawal seizure but on the other hand is true epileptic seizures remains a possibility. No evidence of any acute [employer] infections on current neurological examination or on the labs CT of the head was negative no focal findings on neurological examination to be suggestive of meningismus. With this current clinical context though these tend to look like seizures but I would argue that they are likely related to his heavy alcohol use and probably withdrawal. We will do an EEG to make sure there is no interictal abnormalities present. At the moment does not need to be on any different antiepileptic medication. He is been on Lyrica for his sensorimotor peripheral neuropathy which is an antiepileptic medication we can adjust the dose accordingly and does not need to be on a different seizure medication. He should be on seizure precautions and alcoholic withdrawal precautions, check for underlying any new metabolic or infectious etiology he was recently treated with antibiotics for pneumonia may need to check that he may has not completely recovered from it (2) Polyneuropathy, peripheral sensorimotor axonal Current Visit: Yes Status: Acute Patient already had an MRI of the lumbar spine that shows some degenerative changes but no acute abnormality. CSF analysis was borderline he did have slightly elevated proteins, and slightly elevated WBC count still within the normal limits that pattern could be seen in the CIDP that remains a possibility but on the other hand he has severe neuropathy which is likely alcoholic induced We will review all his other labs some of them are still pending so for other reversible causes has been negative As these remain symptomatic perhaps he may have to give him a trial off IVIG >> He would likely benefit from rehabilitation due to the fact that he would remain at high risk for fall He has refused rehabilitation at his last admission. Explained to the patient in detail that his symptoms of burning and tingling and pain in his lower extremities is a common feature with neuropathy and unfortunately there is no cure and treatment for it and all treatment are symptomatic and that is important that he need to understand it as his symptoms are likely going to continue. We will continue him on on Lyrica for now (3) Alcoholism Current Visit: Yes Status: Chronic Last drink about 6 days ago as per patient should be on alcoholic precautions (4) Lower extremity weakness Current Visit: Yes Status: Acute Qualifiers: Laterality: bilateral Qualified Code(s): R29.898 - Other symptoms and signs involving the musculoskeletal system History of Present Illness HPI: Mr. Diaz is a 42 year old male with history of alcohol abuse since his teens who is transferred from [facility] after a witness missael x2. apparently He was at his son's baseball game today suddenly started having what was described as convulsions. not sure how long it lasted. EMS were called and had second episode that resolved spontaneously, had some onfusion afterwards and next thing he remembers is that he is at [facility]. No urinary or bowel incontinence during those episodes. When he presented to [facility] he was hemodynamically stable and had no further episodes. CT head was unremarkable. he was than transported to [facility] now. Back to his baseline complaining of paresthesias in his lower extremities but no other seizures. Patient denies any history of seizures never had seizures before. He did acknowledges of heavy drinking as he has a history of heavy alcohol use he was recently discharged from the hospital when he had an extensive workup for his neuropathy. His last drink was about 5/ 6 days ago. Patient had an history for about 4/6 months of progressive bilateral lower extremity neuropathy. He was evaluated earlier as an outpatient and was found to have a severe sensorimotor peripheral neuropathy, He was apparently worked up in [facility] in November with an MRI of the lumbar spine that demonstrated osteo-arthritis, DJD. Without any critical stenosis, EMG was consistent with the sensorimotor peripheral neuropathy. Symptoms and progressive for the last 4 months leading to inability to ambulate. He drinks 3-4 cups of liquor [employer] almost every day, for long period of time , he reported that he does not eat very much and has lost about 38 pounds. He has a history of chronic alcoholism since in his teens. At his last admission few days ago Chest CT demonstrated concerns for bronchiolitis in the right lower lobe and right upper lobe. He was treated with antibiotics He was also placed on CIWA protocol due to severe alcohol dependence. Neurology was consulted and performed a lumbar puncture that demonstrated CSF with minimally elevated protein and few WBC. They believe the bilateral paresthesias likely to be secondary to alcohol abuse and malnutrition. Unlikely to be CIDP. Labs ordered were including folate, vitamin B12, MMA, homocysteine, HIV, RPR, Lyme disease, heavy metal poisoning assay, borrelia burgdoreri CSF culture, protein electrophoresis. Most of the result is were negative and particularly vitamin B12 folate TSH and Lyme others are pending now . Past Med Surg Social Fam HX - Past Medical History Medical history: hypertension Psychiatric history: depression - Past Surgical History Surgical History: no surgical history - Social History Smoking Status: Current every day smoker Smokeless Tobacco Status: No Alcohol use: heavy, recent Drug use: none Medications and Allergies Metoprolol Succinate [Toprol Xl] 25 mg PO DAILY 02/18/18 [History] Multivits,Ca,Min/Iron/FA/Lycop [Men Under 50 Multivitamin Tab] 1 tab PO DAILY [History] Pregabalin [Lyrica] 150 mg PO BID 02/18/18 [History] Amoxicillin/Clavulanate [Augmentin] 500 mg PO BIDWM #15 tablet 02/20/18 [Rx] Folic Acid 1 mg PO DAILY #30 tablet 02/20/18 [Rx] 3 Allergy/AdvReac Type Severity Reaction Status Date / Time No Known Allergies Allergy Verified 02/18/18 11:23 All Systems: The remainder of the systems were reviewed and are negative Physical Examination - Vital Signs Vital Signs: Initial Vital Signs Pulse Ox 97 02/21/18 21:00 - Exam Exam: GENERAL: Comfortable in no acute distress HEENT: Normal LUNGS: CTA HEART: RRR, S1 S2 Audible, no murmur EXTREMITIES: No Pedal edema. - Constitutional General appearance: comfortable - Neurologic Detailed motor examination: grossly full strength in all extremities Motor examination - right side: 3/5: tibialis Anterior, quadriceps, toe extension (EHL), plantarflexion, 5/5: deltoids, biceps, triceps, wrist flexion, wrist extension, cleaner and preparer, hip flexors Motor examination - left side: 3/5: hip flexors, cleaner and preparer, quadriceps, tibialis Anterior, toe extension (EHL), plantarflexion, 5/5: deltoids, biceps, triceps, wrist flexion, wrist extension Detailed sensory examination: pain Reflexes: Biceps: 1+, Triceps: 1+, Brachioradialis: 0, Patella: 0, Achilles: 0 Mental Status Examination: awake, alert, oriented to person, oriented to place, oriented to time, follows commands appropriately, answers questions appropriately, no agnosia, no aphasia, no aproxia Cranial nerve examination: PERRL, EOMI, visual diallo intact, corneal reflexes brisk symmetrically, sensory to face intact, mastication intact, no facial asymmetry is present, no dysarthria, hearing is intact symmetrically, soft palate elevates bilaterally upon phonation, gag reflex intact, flexes SCM and trapezius muscles symmetrically with full power, tongue protrudes midline, no atrophy or facial fasiculations present Cerebellar examination: no dysmetria Results - Laboratory Findings CBC and BMP: 02/22/18 04:47 02/22/18 04:47 Abnormal lab findings: Abnormal lab results RBC 2.41 M/mcL (4.19-5.50) L 02/22/18 04:47 Hgb 9.4 g/dL (12.9-16.9) L 02/22/18 04:47 Hct 27.8 % (37.5-50.1) L 02/22/18 04:47 MCV 115.4 fL (83.0-100.0) H 02/22/18 04:47 MCH 39.0 pg (28.0-33.3) H 02/22/18 04:47 Nucleated RBCs/100 WBC 0.2 /100 WBC (0) H 02/21/18 22:15 Anisocytosis 1+ (Not Present) A 02/22/18 04:47 Macrocytosis Present (Not Present) A 02/22/18 04:47 PT 14.4 Seconds (9.4-12.1) H 02/21/18 22:15 Sodium 132 mEq/L (136-145) L 02/22/18 04:47 Potassium 3.0 mEq/L (3.5-5.1) L 02/22/18 04:47 BUN 5 mg/dL (6-20) L 02/22/18 04:47 Glucose 110 mg/dL (70-105) H 02/22/18 04:47 POC Glucose 102 mg/dL (70-99) H 02/21/18 21:20 Calculated Osmolality 272 (280-300) L 02/22/18 04:47 Total Bilirubin 2.2 mg/dL (0.3-1.0) H 02/21/18 22:15 AST 77 Units/L (13-39) H 02/21/18 22:15 Alkaline Phosphatase 152 Units/L (34-104) H 02/21/18 22:15 Serum Total Protein 6.0 g/dL (6.4-8.9) L 02/21/18 22:15 Albumin 3.4 g/dL (3.5-5.7) L 02/21/18 22:15 Consult Discharge Plan - Plan Referrals: Tunde Beyer MD [Primary Care Provider] - 02/27/18 9:45 am Kiko Tavera MD [Non-Partnered Physician] - 02/26/18 2:15 pm Shmuel Adhikari MD [Partnered Physician] - 03/02/18 1:45 pm
[2018-02-22] MEDS: 0.9 % Sodium Chloride 1,000 ML IVC SCH (18:18)
[2018-02-23 05:25] LABS: Basophils % 0.4 %; Eosinophils % 0.5 %; Hematocrit 28.1 % (37.5-50.1); Hemoglobin 9.1 g/dL (12.9-16.9); Immature Granulocytes % 1.7 % (0-4); Lymphocytes # 1.4 K/mcL (0.6-4.6); Lymphocytes % 18.3 %; Mean Corpuscular HGB Conc 32.4 g/dL (31.6-35.5); Mean Corpuscular Hemoglobin 38.4 pg (28.0-33.3); Mean Corpuscular Volume 118.6 fL (83.0-100.0); Mean Platelet Volume 11.2 fL (9.4-12.4); Platelet Count 174 K/mcL (140-400); Red Blood Count 2.37 M/mcL (4.19-5.50); Red Cell Distribution Width 14.3 % (11.5-14.5); Segmented Neutrophils % 66.1 %
[2018-02-23] MEDS: 0.9 % Sodium Chloride 1,000 ML IVC SCH ×2 (05:47→15:31)
[2018-02-23] MEDS: *HR* Heparin 5,000 UNIT/ML VIAL SQ SCH ×3 (05:47→22:00)
[2018-02-23 05:49] LABS: BUN/Creatinine Ratio 5 (6-26); Blood Urea Nitrogen 3 mg/dL (6-20); Calcium 8.7 mg/dL (8.6-10.3); Carbon Dioxide 21 mEq/L (23-29); Chloride 110 mEq/L (98-107); Glucose 93 mg/dL (70-105); Osmolality,Calculated 286 (280-300); Potassium 4.2 mEq/L (3.5-5.1); Sodium 140 mEq/L (136-145); eGFR For African Americans > 60 (> 60); eGFR For Non-African Americans > 60 (> 60)
[2018-02-23 06:08] LABS: Macrocytosis Present (Not Present); Polychromasia 1+ (Not Present)
[2018-02-23 06:09] LABS: Platelet Estimate Normal (Normal)
[2018-02-23 06:10] LABS: Stomatocytes 1+ (Not Present)
[2018-02-23 06:11] LABS: Anisocytosis 1+ (Not Present); Large Platelets Present (Not Present)
[2018-02-23] MEDS: Amoxicillin/Clavulanate 500 MG TABLET PO SCH ×2 (07:59→17:30)
[2018-02-23] MEDS: Thiamine (B-1) 100 MG TABLET PO SCH (07:59)
[2018-02-23] MEDS: Folic Acid 1 MG TABLET PO SCH (07:59)
[2018-02-23] MEDS: Pregabalin 75 MG CAPSULE PO SCH ×2 (08:00→22:00)
[2018-02-23] MEDS: Vitamin B Complex/Vit C/Vit E 1 EACH TABLET PO SCH (08:00)
--- NOTE | 2018-02-23 10:21 | Internal Med Progress Note ---
Date of Encounter: 02/23/18 Time of Encounter: 09:55 - Assessment and plan (1) Seizure Current Visit: Yes Status: Acute Assessment and plan: Here for a witnessed seizures 2 with convulsive-like activity. Long-standing history of heavy alcohol abuse since the age of 19, reporting drinking 4-6 cups of rum daily. Likely alcohol withdrawal seizures. Neurology is seeing the patient. No additional seizures since admission. No focal neurological deficits. Unclear as to whether or not this is true seizure. Patient is on Lyrica for sensorimotor peripheral neuropathy; per neurology adjust as needed. Neurology following-recommend EEG CT head negative for any significant findings Implement [facility] protocol Seizure precautions Neuro assessments every shift Continuous telemetry Recheck labs in the morning PT/OT following (2) Alcoholism Current Visit: Yes Status: Chronic Assessment and plan: The need for cessation has been discussed with the patient; patient declining counseling at this time Supportive services have been offered Continues [facility] (3) Paresthesia of both lower extremities Current Visit: Yes Status: Chronic Assessment and plan: Patient has ongoing paresthesia of bilateral lower extremity. Extensive workup completed during last admission including imaging studies, LP and metabolic workup. Patient has been found to have normal TSH, folate and B12 levels. As mentioned previously, This has been worked up per neurology during a recent admission, etiology remains unclear. Likely due to chronic alcohol abuse however, could also be due to chronic inflammatory demyelinating polyneuropathy ; however, neurology did not feel that CIDP was likely the diagnosis as the patient has preserved DTRs in his arms Paresthesias remain the same as during prior stay, no worsening of symptoms. Recent workup included spinal tap with the results of; CSF with a WBC of 6 and protein level of 78 Continue physical therapy Continue Lyrica Neurology consulted (4) Bronchitis Current Visit: Yes Status: Acute Assessment and plan: Stable from a respiratory perspective No respiratory distress on room air Continue amoxicillin (5) Hypertension Current Visit: Yes Status: Chronic Assessment and plan: Stable, Continue to hold beta wandy for now due to borderline hypotension on days prior. Continue to closely monitor Qualifiers: Hypertension type: essential hypertension Qualified Code(s): I10 - Essential (primary) hypertension (6) Lower extremity weakness Current Visit: Yes Status: Acute Assessment and plan: see plan above Qualifiers: Laterality: bilateral Qualified Code(s): R29.898 - Other symptoms and signs involving the musculoskeletal system (7) Electrolyte abnormality Current Visit: Yes Status: Acute Assessment and plan: Hypokalemia initially, improved this morning Continue to monitor (8) Anemia, macrocytic, nutritional Current Visit: Yes Status: Chronic Assessment and plan: Microcytic nutritional anemia likely secondary to alcoholism Stable today Continue to monitor (9) Neuropathy due to nutritional deficiency Current Visit: Yes Status: Suspected Assessment and plan: Improve nutritional status Cessation of alcohol (10) Tobacco abuse Current Visit: Yes Status: Chronic Assessment and plan: Discussed tobacco cessation; does not wish to quit at this time (11) DVT prophylaxis Current Visit: Yes Status: Chronic Assessment and plan: Continue Heparin subcutaneous - Time Spent With Patient Total time spent is greater than 50% in coordination of care (as documented) at patient's floor/unit and/or counseling patient: Greater than 35 minutes - Subjective Interval history: Mr. Diaz is a 42 year old male with a history of alcohol abuse since his teens. He was transferred from [facility] after having 2 events of a witnessed seizure with convulsion-like activity while at his son's game. The patient was just recently discharged from [place] and treated for alcoholism and BLE paresthesias. During the recent previous stay the patient did not have any seizure-like activity. He was mildly confused and postictal on arrival. EtOH less than 10 on labs. Patient reports he has not had any alcohol for approximately 1 week. Seen and examined at bedside today. BLE paresthesias persist as well as BLE weakness Denies any SI/HI, denies any auditory/visual hallucinations, does not appear agitated. Mild BLE, BUE tremors noted likely due to withdrawal. Denies any other complaints - Constitutional Vitals: Temp Pulse Resp BP Pulse Ox 100.3 F H 92 15 122/81 98 02/23/18 06:43 02/23/18 06:43 02/23/18 06:43 02/23/18 06:43 02/23/18 06:43 General appearance: Present: A&O X 3 - Head Head exam: Present: atraumatic, normocephalic - Eye Eye exam: Present: PERRL, conjuntiva pink, sclera anicteric Pupils: Present: PERRL - Neck Neck exam general surgery: Present: supple, trachea midline. Absent: lymphadenopathy - Respiratory Respiratory exam: Present: CTAB. Absent: accessory muscle use, rales, rhonchi, wheezes - Cardiovascular Cardiovascular exam: Present: RRR, +S1, +S2. Absent: diastolic murmur, gallop, rubs, systolic murmur - GI/Abdominal GI/Abdominal exam: Present: normal bowel sounds, soft, no peritoneal signs. Absent: distended, tenderness - Extremities Exam Extremities exam: Present: warm, radial pulses palpable and symmetrical. Absent : calf tenderness, cyanotic, pedal edema Additional comments: BUE, BLE tremmors - Neurological Exam Neurological exam: Present: CN II-XII intact, oriented X3, no focal deficits. Absent: pronater drift, facial droop, speech deficit - Psychiatric Psychiatric exam: Present: normal affect, normal mood. Absent: homicidal ideation, suicidal ideation - Skin Skin exam: Present: dry, intact Internal Medicine: Result - Labs CBC & Chem 7: 02/23/18 04:22 02/23/18 04:22 Labs: Short CBC 02/23/18 Range/Units 04:22 WBC 7.6 (4.3-11.1) K/mcL Hgb 9.1 L (12.9-16.9) g/dL Hct 28.1 L (37.5-50.1) % Plt Count 174 (140-400) K/mcL Neutrophils # 5.0 (1.6-8.9) K/mcL BMP 02/22/18 02/23/18 14:50 04:22 Sodium 140 Potassium 3.8 D 4.2 Chloride 110 H Carbon Dioxide 21 L BUN 3 L Creatinine 0.62 L Glucose 93 Calcium 8.7 - ABG Interpretation ABG results: PT/INR, D-dimer PT 14.4 Seconds (9.4-12.1) H 02/21/18 22:15 Consult Discharge Plan - Plan Referrals: Tunde Beyer MD [Primary Care Provider] - 02/27/18 9:45 am Kiko Tavera MD [Non-Partnered Physician] - 02/26/18 2:15 pm Shmuel Adhikari MD [Partnered Physician] - 03/02/18 1:45 pm
--- NOTE | 2018-02-23 13:25 | Neurology Progress Note ---
Date of Encounter: 02/23/18 Time of Encounter: 07:00 Assessment and Plan (1) Seizure Current Visit: Yes Status: Acute Likely withdrawal seizures no indication to start on any new different antiepileptic medication currently on Lyrica high-dose suggest to continue on it (2) Polyneuropathy, peripheral sensorimotor axonal Current Visit: Yes Status: Acute Severe sensorimotor peripheral neuropathy with the concern of CIDP high risk for a fall he did have significant weakness in lower extremities with advanced neuropathy strongly recommend physical therapy rehabilitation patient has declined at the previous admission he was also declining it yesterday but today he seems to be agreeable for short-term rehabilitation Patient also getting very anxious and nervous he probably would benefit from some anxiolytic agent, (3) Alcoholism Current Visit: Yes Status: Chronic (4) Lower extremity weakness Current Visit: Yes Status: Acute Qualifiers: Laterality: bilateral Qualified Code(s): R29.898 - Other symptoms and signs involving the musculoskeletal system Subjective Interval history: Stable no further seizures reported. Remains quite anxious and nervous getting physical therapy now. Remains on cimt protocol for withdrawal precautions Objective - Constitutional Vitals: Temp Pulse Resp BP Pulse Ox 98.6 F 82 16 121/80 99 02/23/18 11:10 02/23/18 11:10 02/23/18 11:10 02/23/18 11:10 02/23/18 11:10 - Neurological Exam Motor Examination: Present: grossly full strength in all extremities Motor examination - left side: 3/5: hip flexors, assistant teaching professor, quadriceps, tibialis Anterior, toe extension (EHL), plantarflexion, 5/5: deltoids, biceps, triceps, wrist flexion, wrist extension Sensation intact: Present: pain Mental Status Examination: Present: awake, alert, oriented to person, oriented to place, oriented to time, follows commands appropriately, answers questions appropriately, no agnosia, no aphasia, no aproxia Cranial nerve examination: Present: PERRL, EOMI, visual diallo intact, corneal reflexes brisk symmetrically, sensory to face intact, mastication intact, no facial asymmetry is present, no dysarthria, hearing is intact symmetrically, soft palate elevates bilaterally upon phonation, gag reflex intact, flexes SCM and trapezius muscles symmetrically with full power, tongue protrudes midline, no atrophy or facial fasiculations present Cerebellar examination: Present: no dysmetria Results - Laboratory Findings CBC and BMP: 05/07/18 04:22 02/23/18 04:22 Abnormal lab findings: Abnormal lab results RBC 2.37 M/mcL (4.19-5.50) L 02/23/18 04:22 Hgb 9.1 g/dL (12.9-16.9) L 02/23/18 04:22 Hct 28.1 % (37.5-50.1) L 02/23/18 04:22 MCV 118.6 fL (83.0-100.0) H 02/23/18 04:22 MCH 38.4 pg (28.0-33.3) H 02/23/18 04:22 Nucleated RBCs/100 WBC 0.2 /100 WBC (0) H 02/21/18 22:15 Large Platelets Present (Not Present) A 02/23/18 04:22 Polychromasia 1+ (Not Present) A 02/23/18 04:22 Anisocytosis 1+ (Not Present) A 02/23/18 04:22 Macrocytosis Present (Not Present) A 02/23/18 04:22 Stomatocytes 1+ (Not Present) A 02/23/18 04:22 PT 14.4 Seconds (9.4-12.1) H 02/21/18 22:15 Chloride 110 mEq/L (98-107) H 02/23/18 04:22 Carbon Dioxide 21 mEq/L (23-29) L 02/23/18 04:22 BUN 3 mg/dL (6-20) L 02/23/18 04:22 Creatinine 0.62 mg/dL (0.70-1.30) L 02/23/18 04:22 BUN/Creatinine Ratio 5 (6-26) L 02/23/18 04:22 POC Glucose 102 mg/dL (70-99) H 02/21/18 21:20 Total Bilirubin 2.2 mg/dL (0.3-1.0) H 02/21/18 22:15 AST 77 Units/L (13-39) H 02/21/18 22:15 Alkaline Phosphatase 152 Units/L (34-104) H 02/21/18 22:15 Serum Total Protein 6.0 g/dL (6.4-8.9) L 02/21/18 22:15 Albumin 3.4 g/dL (3.5-5.7) L 02/21/18 22:15 Consult Discharge Plan - Plan Referrals: Tunde Beyer MD [Primary Care Provider] - 02/27/18 9:45 am Kiko Tavera MD [Non-Partnered Physician] - 02/26/18 2:15 pm Shmuel Adhikari MD [Partnered Physician] - 03/02/18 1:45 pm
[2018-02-24] MEDS: 0.9 % Sodium Chloride 1,000 ML IVC SCH ×3 (01:12→23:00)
[2018-02-24] MEDS: *HR* Heparin 5,000 UNIT/ML VIAL SQ SCH ×3 (05:05→20:26)
[2018-02-24 07:31] LABS: BUN/Creatinine Ratio 5 (6-26); Blood Urea Nitrogen 3 mg/dL (6-20); Calcium 8.6 mg/dL (8.6-10.3); Carbon Dioxide 19 mEq/L (23-29); Chloride 108 mEq/L (98-107); Glucose 91 mg/dL (70-105); Osmolality,Calculated 284 (280-300); Potassium 3.8 mEq/L (3.5-5.1); Sodium 139 mEq/L (136-145); eGFR For African Americans > 60 (> 60); eGFR For Non-African Americans > 60 (> 60)
[2018-02-24 07:55] LABS: Basophils % 0.4 %; Eosinophils % 0.5 %; Hematocrit 29.3 % (37.5-50.1); Hemoglobin 9.7 g/dL (12.9-16.9); Immature Granulocytes % 1.1 % (0-4); Lymphocytes # 1.4 K/mcL (0.6-4.6); Lymphocytes % 17.5 %; Mean Corpuscular HGB Conc 33.1 g/dL (31.6-35.5); Mean Corpuscular Hemoglobin 39.3 pg (28.0-33.3); Mean Corpuscular Volume 118.6 fL (83.0-100.0); Mean Platelet Volume 11.5 fL (9.4-12.4); Monocytes # 1.1 K/mcL (0.0-1.3); Neutrophils # 5.5 K/mcL (1.6-8.9); Platelet Count 178 K/mcL (140-400); Red Blood Count 2.47 M/mcL (4.19-5.50); Red Cell Distribution Width 13.9 % (11.5-14.5); Segmented Neutrophils % 67.5 %
[2018-02-24] MEDS: Vitamin B Complex/Vit C/Vit E 1 EACH TABLET PO SCH (08:55)
[2018-02-24] MEDS: Pregabalin 75 MG CAPSULE PO SCH ×2 (08:55→20:26)
[2018-02-24] MEDS: Folic Acid 1 MG TABLET PO SCH (08:55)
[2018-02-24] MEDS: Amoxicillin/Clavulanate 500 MG TABLET PO SCH ×2 (08:55→16:42)
[2018-02-24] MEDS: Thiamine (B-1) 100 MG TABLET PO SCH (08:55)
--- NOTE | 2018-02-24 09:08 | Neurology Progress Note ---
Date of Encounter: 02/24/18 Time of Encounter: 07:30 Assessment and Plan (1) Seizure Current Visit: Yes Status: Acute No further seizures reported no evidence of any abnormal seizure activity. CT scan of the head was been negative. No need for any new anticonvulsive medication he is been on Lyrica suggested to continue on it Patient remained quite anxious and nervous probably need to increase the dose of hydroxyzine or perhaps may need to be on some other anxiolytic agent. He is stable from neurology standpoint could be transferred to the short-term rehabilitation (2) Polyneuropathy, peripheral sensorimotor axonal Current Visit: Yes Status: Acute Continue with current treatment considering severe neuropathy would probably benefit from short-term rehabilitation particularly for gait and balance and fall precautions (3) Alcoholism Current Visit: Yes Status: Chronic (4) Lower extremity weakness Current Visit: Yes Status: Acute Qualifiers: Laterality: bilateral Qualified Code(s): R29.898 - Other symptoms and signs involving the musculoskeletal system Subjective Interval history: Stable no further seizures reported. Remains quite anxious and nervous getting physical therapy now. Remains on [facility] protocol for withdrawal precautions Was a started on hydroxyzine yesterday but is still quite anxious and nervous. Able to participate in the physical therapy plan for the rehabilitation. No further seizures reported Objective - Constitutional Vitals: Temp Pulse Resp BP Pulse Ox 98.7 F 86 17 125/79 97 02/24/18 06:27 02/24/18 06:27 02/24/18 06:27 02/24/18 06:27 02/24/18 06:27 - Neurological Exam Motor Examination: Present: grossly full strength in all extremities Motor examination - left side: 3/5: hip flexors, geodesist, quadriceps, tibialis Anterior, toe extension (EHL), plantarflexion, 5/5: deltoids, biceps, triceps, wrist flexion, wrist extension Sensation intact: Present: pain Mental Status Examination: Present: awake, alert, oriented to person, oriented to place, oriented to time, follows commands appropriately, answers questions appropriately, no agnosia, no aphasia, no aproxia Cranial nerve examination: Present: PERRL, EOMI, visual diallo intact, corneal reflexes brisk symmetrically, sensory to face intact, mastication intact, no facial asymmetry is present, no dysarthria, hearing is intact symmetrically, soft palate elevates bilaterally upon phonation, gag reflex intact, flexes SCM and trapezius muscles symmetrically with full power, tongue protrudes midline, no atrophy or facial fasiculations present Cerebellar examination: Present: no dysmetria Results - Laboratory Findings CBC and BMP: 02/24/18 05:13 02/24/18 05:13 Abnormal lab findings: Abnormal lab results RBC 2.47 M/mcL (4.19-5.50) L 02/24/18 05:13 Hgb 9.7 g/dL (12.9-16.9) L 02/24/18 05:13 Hct 29.3 % (37.5-50.1) L 02/24/18 05:13 MCV 118.6 fL (83.0-100.0) H 02/24/18 05:13 MCH 39.3 pg (28.0-33.3) H 02/24/18 05:13 Nucleated RBCs/100 WBC 0.2 /100 WBC (0) H 02/21/18 22:15 Large Platelets Present (Not Present) A 02/23/18 04:22 Polychromasia 1+ (Not Present) A 02/23/18 04:22 Anisocytosis 1+ (Not Present) A 02/23/18 04:22 Macrocytosis Present (Not Present) A 02/23/18 04:22 Stomatocytes 1+ (Not Present) A 02/23/18 04:22 PT 14.4 Seconds (9.4-12.1) H 02/21/18 22:15 Chloride 108 mEq/L (98-107) H 02/24/18 05:13 Carbon Dioxide 19 mEq/L (23-29) L 02/24/18 05:13 BUN 3 mg/dL (6-20) L 02/24/18 05:13 Creatinine 0.55 mg/dL (0.70-1.30) L 02/24/18 05:13 BUN/Creatinine Ratio 5 (6-26) L 02/24/18 05:13 POC Glucose 102 mg/dL (70-99) H 02/21/18 21:20 Total Bilirubin 2.2 mg/dL (0.3-1.0) H 02/21/18 22:15 AST 77 Units/L (13-39) H 02/21/18 22:15 Alkaline Phosphatase 152 Units/L (34-104) H 02/21/18 22:15 Serum Total Protein 6.0 g/dL (6.4-8.9) L 02/21/18 22:15 Albumin 3.4 g/dL (3.5-5.7) L 02/21/18 22:15 Consult Discharge Plan - Plan Referrals: Tunde Beyer MD [Primary Care Provider] - Kiko Tavera MD [Non-Partnered Physician] - 02/26/18 2:15 pm Shmuel Adhikari MD [Partnered Physician] - 03/02/18 1:45 pm
[2018-02-24] MEDS ORDERED: Nicotine 14 MG PATCH.TD24 TD SCH (13:00)
--- NOTE | 2018-02-24 18:40 | Internal Med Progress Note ---
Date of Encounter: 02/24/18 Time of Encounter: 12:30 - Assessment and plan (1) Seizure Current Visit: Yes Status: Acute Assessment and plan: Here for a witnessed seizures 2 with convulsive-like activity. Long-standing history of heavy alcohol abuse since the age of 19, reporting drinking 4-6 cups of rum daily. Likely alcohol withdrawal seizures. Neurology is seeing the patient. No additional seizures since admission. No focal neurological deficits. Unclear as to whether or not this is true seizure. Patient is on Lyrica for sensorimotor peripheral neuropathy; per neurology adjust as needed. Neurology following-stable according to neurology no need for any new anticonvulsants neurology suggested to continue Lyrica CT head negative for any significant findings Implement [facility] protocol Seizure precautions Neuro assessments every shift Continuous telemetry Recheck labs in the morning PT/OT following (2) Alcoholism Current Visit: Yes Status: Chronic Assessment and plan: The need for cessation has been discussed with the patient; patient states he has not drank in approximately 8 -9 days Supportive services have been offered Continues [facility] (3) Electrolyte abnormality Current Visit: Yes Status: Acute Assessment and plan: Hypokalemia initially, improved continue to monitor and replace as needed (4) Bronchitis Current Visit: Yes Status: Acute Assessment and plan: Stable from a respiratory perspective-continue to monitor No respiratory distress on room air Continue amoxicillin (5) Hypertension Current Visit: Yes Status: Chronic Assessment and plan: Stable, stable at this time beta wandy has been held due to recent hypotension -we will continue to monitor Qualifiers: Hypertension type: essential hypertension Qualified Code(s): I10 - Essential (primary) hypertension (6) DVT prophylaxis Current Visit: Yes Status: Chronic Assessment and plan: Continue Heparin subcutaneous (7) Paresthesia of both lower extremities Current Visit: Yes Status: Chronic Assessment and plan: Patient has ongoing paresthesia of bilateral lower extremity. stable at this time unchanged Extensive workup completed during last admission including imaging studies, LP and metabolic workup. Patient has been found to have normal TSH, folate and B12 levels. etiology remains unclear. Likely due to chronic alcohol abuse however, could also be due to chronic inflammatory demyelinating polyneuropathy; however, neurology did not feel that CIDP was likely the diagnosis as the patient has preserved DTRs in his arms Paresthesias remain the same as during prior stay, no worsening of symptoms. Recent workup included spinal tap with the results of; CSF with a WBC of 6 and protein level of 78 Continue physical therapy Continue Lyrica Neurology consulted (8) Neuropathy due to nutritional deficiency Current Visit: Yes Status: Suspected Assessment and plan: Improve nutritional status Cessation of alcohol Continuous vitamin supplements (9) Anemia, macrocytic, nutritional Current Visit: Yes Status: Chronic Assessment and plan: Microcytic nutritional anemia likely secondary to alcoholism Stable-Continue to monitor (10) Tobacco abuse Current Visit: Yes Status: Chronic Assessment and plan: Discussed tobacco cessation; requesting nicotine patch (11) Lower extremity weakness Current Visit: Yes Status: Acute Assessment and plan: see plan above Qualifiers: Laterality: bilateral Qualified Code(s): R29.898 - Other symptoms and signs involving the musculoskeletal system - Time Spent With Patient Total time spent is greater than 50% in coordination of care (as documented) at patient's floor/unit and/or counseling patient: - Subjective Interval history: This patient is new to me I did review her medical records. I did examine the patient at bedside earlier today. Presently patient is waiting for placement to rehabilitation center. He does appear somewhat nervous however denies any chest pain or shortness of breath. Patient does request nicotine patch. Encourage patient to stop smoking. No seizure activity noted I did review treatment plan patient who agrees - Constitutional Vitals: Temp Pulse Resp BP Pulse Ox 99.4 F 93 15 135/90 97 02/24/18 18:31 02/24/18 18:31 02/24/18 18:31 02/24/18 18:31 02/24/18 18:31 General appearance: Present: A&O X 3 - Head Head exam: Present: atraumatic, normocephalic - Eye Eye exam: Present: PERRL, conjuntiva pink, sclera anicteric Pupils: Present: PERRL - Neck Neck exam general surgery: Present: supple, trachea midline. Absent: lymphadenopathy - Respiratory Respiratory exam: Present: CTAB. Absent: accessory muscle use, rales, rhonchi, wheezes - Cardiovascular Cardiovascular exam: Present: RRR, +S1, +S2. Absent: diastolic murmur, gallop, rubs, systolic murmur - GI/Abdominal GI/Abdominal exam: Present: normal bowel sounds, soft, no peritoneal signs. Absent: distended, tenderness - Extremities Exam Extremities exam: Present: warm, radial pulses palpable and symmetrical. Absent : calf tenderness, cyanotic, pedal edema - Neurological Exam Neurological exam: Present: CN II-XII intact, oriented X3, no focal deficits. Absent: pronater drift, facial droop, speech deficit - Skin Skin exam: Present: dry, intact Internal Medicine: Result - Labs CBC & Chem 7: 02/24/18 05:13 02/24/18 05:13 Labs: Short CBC 02/24/18 Range/Units 05:13 WBC 8.2 (4.3-11.1) K/mcL Hgb 9.7 L (12.9-16.9) g/dL Hct 29.3 L (37.5-50.1) % Plt Count 178 (140-400) K/mcL Neutrophils # 5.5 (1.6-8.9) K/mcL BMP 02/24/18 05:13 Sodium 139 Potassium 3.8 Chloride 108 H Carbon Dioxide 19 L BUN 3 L Creatinine 0.55 L Glucose 91 Calcium 8.6 - ABG Interpretation ABG results: PT/INR, D-dimer PT 14.4 Seconds (9.4-12.1) H 02/21/18 22:15 Consult Discharge Plan - Plan Referrals: Tunde Beyer MD [Primary Care Provider] - Kiko Tavera MD [Non-Partnered Physician] - 02/26/18 2:15 pm Shmuel Adhikari MD [Partnered Physician] - 03/02/18 1:45 pm
[2018-02-25] MEDS: *HR* Heparin 5,000 UNIT/ML VIAL SQ SCH (04:59)
[2018-02-25 05:12] LABS: Hematocrit 30.3 % (37.5-50.1); Mean Corpuscular Hemoglobin 38.6 pg (28.0-33.3); Mean Platelet Volume 11.3 fL (9.4-12.4); Platelet Count 173 K/mcL (140-400); Red Blood Count 2.59 M/mcL (4.19-5.50); Red Cell Distribution Width 13.5 % (11.5-14.5)
[2018-02-25 05:27] LABS: BUN/Creatinine Ratio 5 (6-26); Blood Urea Nitrogen 3 mg/dL (6-20); Calcium 8.8 mg/dL (8.6-10.3); Carbon Dioxide 22 mEq/L (23-29); Chloride 105 mEq/L (98-107); Glucose 100 mg/dL (70-105); Osmolality,Calculated 277 (280-300); Potassium 3.7 mEq/L (3.5-5.1); Sodium 135 mEq/L (136-145); eGFR For African Americans > 60 (> 60); eGFR For Non-African Americans > 60 (> 60)
[2018-02-25 06:05] LABS: Lymphocytes # 1.1 K/mcL (0.6-4.6); Monocytes # 0.6 K/mcL (0.0-1.3); Platelet Estimate Normal (Normal)
[2018-02-25 06:06] LABS: Hypochromasia Present (Not Present); Macrocytosis Present (Not Present)
[2018-02-25 06:49] VITALS: BP 127/87
[2018-02-25] MEDS: Thiamine (B-1) 100 MG TABLET PO SCH (08:10)
[2018-02-25] MEDS: Vitamin B Complex/Vit C/Vit E 1 EACH TABLET PO SCH (08:10)
[2018-02-25] MEDS: Pregabalin 75 MG CAPSULE PO SCH (08:10)
[2018-02-25] MEDS: Amoxicillin/Clavulanate 500 MG TABLET PO SCH (08:10)
[2018-02-25] MEDS: Folic Acid 1 MG TABLET PO SCH (08:10)
[2018-02-25] MEDS: 0.9 % Sodium Chloride 1,000 ML IVC SCH (08:11)
--- NOTE | 2018-02-25 09:27 | Discharge Summary ---
Date of Encounter: 02/25/18 Time of Encounter: 09:25 - Discharge Diagnosis (1) Seizure Priority: Primary Status: Acute Assessment and Plan: Here for a witnessed seizures 2 with convulsive-like activity. Long-standing history of heavy alcohol abuse since the age of 19, reporting drinking 4-6 cups of rum daily. Likely alcohol withdrawal seizures. Neurology consulted No additional seizures since admission. No focal neurological deficits. Unclear as to whether or not this is true seizure. Patient is on Lyrica for sensorimotor peripheral neuropathy; per neurology adjust as needed. according to neurology no need for any new anticonvulsants neurology suggested to continue Lyrica CT head negative for any significant findings short term rehab (2) Alcoholism Priority: Primary Status: Chronic Assessment and Plan: The need for cessation has been discussed with the patient; patient states he has not drank in approximately 8 -9 days Supportive services have been offered Continues [facility] (3) Electrolyte abnormality Priority: Secondary Status: Acute Assessment and Plan: Hypokalemia initially, resolved (4) Bronchitis Priority: Secondary Status: Acute Assessment and Plan: Stable from a respiratory perspective-continue to monitor No respiratory distress on room air Continue amoxicillin (5) Hypertension Priority: Secondary Status: Chronic Qualifiers: Hypertension type: essential hypertension Qualified Code(s): I10 - Essential (primary) hypertension (6) Paresthesia of both lower extremities Priority: Secondary Status: Chronic (7) Neuropathy due to nutritional deficiency Priority: Secondary Status: Suspected (8) Anemia, macrocytic, nutritional Priority: Secondary Status: Chronic (9) Tobacco abuse Priority: Secondary Status: Chronic (10) Lower extremity weakness Priority: Secondary Status: Acute Assessment and Plan: rehab - will be discharged to [facility] Qualifiers: Laterality: bilateral Qualified Code(s): R29.898 - Other symptoms and signs involving the musculoskeletal system Hospital course: Mr. Diaz is a 42 year old male past medical history of alcohol use hypertension patient was transferred from [facility] after experiencing 2 witnessed seizures. He apparently had been worked up previously for alcohol withdrawal bronchitis and lower extremity weakness and was advised to go to rehabilitation heart he refused and went home. During that admission he was seen by neurology and underwent a CT had an LP cervical spine MRI it was finally deemed that his muscle atrophy and weakness were due to long history of alcohol use. Patient was seen by neurology during this admission neurology suspecting seizures most likely related to alcohol withdrawal and did not require any anticoagulant convulsive medication . 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 Requesting a patient follow-up with neurology as outpatient and he would benefit from rehabilitation. Patient was placed on CIWA with no signs or symptoms of alcohol withdrawal during admission. He was admitted to [facility] for further rehabilitation. Patient is hemodynamically stable at this time and is ready for discharge Discharge discussed with: patient - Time Spent with Patient Total time spent providing and/or coordinating discharge services: - Discharge Medications Prescriptions: Nicotine Patch [Nicoderm] 1 each TD DAILY #14 patch.td24 Pregabalin [Lyrica] 150 mg PO BID 7 Days #28 capsule Home Medications: Multivits,Ca,Min/Iron/FA/Lycop [Men Under 50 Multivitamin Tab] 1 tab PO DAILY [History] Pregabalin [Lyrica] 150 mg PO BID 02/18/18 [History] Folic Acid 1 mg PO DAILY #30 tablet 02/20/18 [Rx] HydrOXYzine 10 mg PO TID PRN tablet 02/25/18 [Rx] Metoprolol Succinate [Toprol Xl] 12.5 mg PO DAILY #30 02/25/18 [Rx] Nicotine Patch [Nicoderm] 1 each TD DAILY #14 patch.td24 02/25/18 [Rx] Pregabalin [Lyrica] 150 mg PO BID 7 Days #28 capsule 02/25/18 [Rx] Thiamine (B-1) [Vitamin B-1] 100 mg PO DAILY #0 tablet 02/25/18 [Rx] Vitamin B Complex/Vit C/Vit E [Stresstab] 1 each PO DAILY tablet 02/25/18 [Rx] Allergies/Adverse Reactions: 3 Allergy/AdvReac Type Severity Reaction Status Date / Time No Known Allergies Allergy Verified 02/18/18 11:23 Date of admission: 02/21/18 20:49 Primary care physician: Tunde Beyer MD Consults: 02/21/18 21:37 Consult to [employer] [CONS] Routine Reason for SW Consult: alcohol abuse 02/21/18 21:39 Consult to Neurology [CONS] Routine Consulting Provider: Neurology [facility] Reason for Consult: seizures/alcohol withdrawal seziures? Call Completed: No 02/21/18 21:40 Consult to Physical Therapy [CONS] Routine Comment: Evaluate, develop and implement POC Reason for Consult: PT eval Does patient have active BEDREST order?: No Is patient medically & hemodynamically stable?: Yes 02/23/18 14:47 Consult to Interpret Exam [CONS] Routine Consulting Provider: Shmuel Adhikari I Consult to Interpret Exam: Interpret EEG Discharging clinician: Kim Cox Anticipated date of discharge: 02/25/18 - Constitutional Vitals: Temp Pulse Resp BP Pulse Ox 99.2 F 80 17 127/87 98 02/25/18 06:46 02/25/18 06:46 02/25/18 06:46 02/25/18 06:46 02/25/18 06:46 General appearance: Present: A&O X 3 - Head Head exam: Present: atraumatic, normocephalic - Eye Eye exam: Present: PERRL, conjuntiva pink, sclera anicteric Pupils: Present: PERRL - Neck Neck exam general surgery: Present: supple, trachea midline. Absent: lymphadenopathy - Respiratory Respiratory exam: Present: CTAB. Absent: accessory muscle use, rales, rhonchi, wheezes - Cardiovascular Cardiovascular exam: Present: RRR, +S1, +S2. Absent: diastolic murmur, gallop, rubs, systolic murmur - GI/Abdominal GI/Abdominal exam: Present: normal bowel sounds, soft, no peritoneal signs. Absent: distended, tenderness - Extremities Exam Extremities exam: Present: warm, radial pulses palpable and symmetrical. Absent : calf tenderness, cyanotic, pedal edema - Neurological Exam Neurological exam: Present: CN II-XII intact, oriented X3, no focal deficits. Absent: pronater drift, facial droop, speech deficit - Skin Skin exam: Present: dry, intact - Patient Status Disposition: Transfer SNF Condition: Good Overall status at discharge: patient is progressing back to baseline - Discharge Instructions Follow Up With: Tunde Beyer MD [Primary Care Provider] - Kiko Tavera MD [Non-Partnered Physician] - 02/26/18 2:15 pm Shmuel Adhikari MD [Partnered Physician] - 03/02/18 1:45 pm Forms: Inpatient Work/School Release - Diet and Activity Activity: as per physical therapy Diet: advance to your usual diet
--- NOTE | 2018-02-25 10:04 | Neurology Progress Note ---
Date of Encounter: 02/25/18 Time of Encounter: 07:10 Assessment and Plan (1) Seizure Current Visit: Yes Status: Acute Likely withdrawal seizures no need for any new anticonvulsive medication (2) Polyneuropathy, peripheral sensorimotor axonal Current Visit: Yes Status: Acute Severe sensorimotor peripheral axonal polyneuropathy likely related to chronic heavy alcohol use Continue multivitamins including thiamin Also question of CIDP with mildly elevated proteins An follow-up as an outpatient in neurology clinic Patient remain at high risk for fall would benefit from rehabilitation (3) Alcoholism Current Visit: Yes Status: Chronic (4) Lower extremity weakness Current Visit: Yes Status: Acute Qualifiers: Laterality: bilateral Qualified Code(s): R29.898 - Other symptoms and signs involving the musculoskeletal system Subjective Interval history: Stable no further seizures reported. Remains quite anxious and nervous getting physical therapy now. Remains on cimd protocol for withdrawal precautions Was a started on hydroxyzine able to participate in the physical therapy plan for the rehabilitation. No further seizures reported Overall stable less anxious as he was yesterday Objective - Constitutional Vitals: Temp Pulse Resp BP Pulse Ox 99.2 F 80 17 127/87 98 02/25/18 06:46 02/25/18 06:46 02/25/18 06:46 02/25/18 06:46 02/25/18 06:46 - Neurological Exam Motor Examination: Present: grossly full strength in all extremities Motor examination - left side: 3/5: hip flexors, communications project manager, quadriceps, tibialis Anterior, toe extension (EHL), plantarflexion, 5/5: deltoids, biceps, triceps, wrist flexion, wrist extension Sensation intact: Present: pain Mental Status Examination: Present: awake, alert, oriented to person, oriented to place, oriented to time, follows commands appropriately, answers questions appropriately, no agnosia, no aphasia, no aproxia Cranial nerve examination: Present: PERRL, EOMI, visual diallo intact, corneal reflexes brisk symmetrically, sensory to face intact, mastication intact, no facial asymmetry is present, no dysarthria, hearing is intact symmetrically, soft palate elevates bilaterally upon phonation, gag reflex intact, flexes SCM and trapezius muscles symmetrically with full power, tongue protrudes midline, no atrophy or facial fasiculations present Cerebellar examination: Present: no dysmetria Results - Laboratory Findings CBC and BMP: 02/25/18 04:34 02/25/18 04:34 Abnormal lab findings: Abnormal lab results RBC 2.59 M/mcL (4.19-5.50) L 02/25/18 04:34 Hgb 10.0 g/dL (12.9-16.9) L 02/25/18 04:34 Hct 30.3 % (37.5-50.1) L 02/25/18 04:34 MCV 117.0 fL (83.0-100.0) H 02/25/18 04:34 MCH 38.6 pg (28.0-33.3) H 02/25/18 04:34 Metamyelocytes % 2.0 % (0) H 02/25/18 04:34 Myelocytes % 2.0 % (0) H 02/25/18 04:34 Nucleated RBCs/100 WBC 0.2 /100 WBC (0) H 02/21/18 22:15 Large Platelets Present (Not Present) A 02/23/18 04:22 Polychromasia 1+ (Not Present) A 02/23/18 04:22 Hypochromasia Present (Not Present) A 02/25/18 04:34 Anisocytosis 1+ (Not Present) A 02/23/18 04:22 Macrocytosis Present (Not Present) A 02/25/18 04:34 Stomatocytes 1+ (Not Present) A 02/23/18 04:22 PT 14.4 Seconds (9.4-12.1) H 02/21/18 22:15 Sodium 135 mEq/L (136-145) L 02/25/18 04:34 Carbon Dioxide 22 mEq/L (23-29) L 02/25/18 04:34 BUN 3 mg/dL (6-20) L 02/25/18 04:34 Creatinine 0.56 mg/dL (0.70-1.30) L 02/25/18 04:34 BUN/Creatinine Ratio 5 (6-26) L 02/25/18 04:34 POC Glucose 102 mg/dL (70-99) H 02/21/18 21:20 Calculated Osmolality 277 (280-300) L 02/25/18 04:34 Total Bilirubin 2.2 mg/dL (0.3-1.0) H 02/21/18 22:15 AST 77 Units/L (13-39) H 02/21/18 22:15 Alkaline Phosphatase 152 Units/L (34-104) H 02/21/18 22:15 Serum Total Protein 6.0 g/dL (6.4-8.9) L 02/21/18 22:15 Albumin 3.4 g/dL (3.5-5.7) L 02/21/18 22:15 Consult Discharge Plan - Plan Referrals: Tunde Beyer MD [Primary Care Provider] - Kiko Tavera MD [Non-Partnered Physician] - 02/26/18 2:15 pm Shmuel Adhikari MD [Partnered Physician] - 03/02/18 1:45 pm Prescriptions: Nicotine Patch [Nicoderm] 1 each TD DAILY #14 patch.td24
--- NOTE | 2018-02-25 10:14 | Physician Discharge Referral ---
ExtendedCare Referral Info Transfer To: [facility] Provider in Charge: Kim Cox Provider in Charge after Transfer: PCP Institutional Level of Care: Skilled - Diagnosis (1) Seizure Priority: Primary Status: Acute (2) Alcoholism Priority: Primary Status: Chronic (3) Electrolyte abnormality Priority: Secondary Status: Acute (4) Bronchitis Priority: Secondary Status: Acute (5) Hypertension Priority: Secondary Status: Chronic (6) Paresthesia of both lower extremities Priority: Primary Status: Chronic (7) Neuropathy due to nutritional deficiency Priority: Secondary Status: Suspected (8) Anemia, macrocytic, nutritional Priority: Secondary Status: Chronic (9) Tobacco abuse Priority: Secondary Status: Chronic (10) Lower extremity weakness Priority: Secondary Status: Acute Prognosis: Fair Aware of Diagnosis: Patient - Transfer Medications Prescriptions: Nicotine Patch [Nicoderm] 1 each TD DAILY #14 patch.td24 Pregabalin [Lyrica] 150 mg PO BID 7 Days #28 capsule Home Medications: Multivits,Ca,Min/Iron/FA/Lycop [Men Under 50 Multivitamin Tab] 1 tab PO DAILY [History] Pregabalin [Lyrica] 150 mg PO BID 02/18/18 [History] Folic Acid 1 mg PO DAILY #30 tablet 02/20/18 [Rx] HydrOXYzine 10 mg PO TID PRN tablet 02/25/18 [Rx] Metoprolol Succinate [Toprol Xl] 12.5 mg PO DAILY #30 02/25/18 [Rx] Nicotine Patch [Nicoderm] 1 each TD DAILY #14 patch.td24 02/25/18 [Rx] Pregabalin [Lyrica] 150 mg PO BID 7 Days #28 capsule 02/25/18 [Rx] Thiamine (B-1) [Vitamin B-1] 100 mg PO DAILY #0 tablet 02/25/18 [Rx] Vitamin B Complex/Vit C/Vit E [Stresstab] 1 each PO DAILY tablet 02/25/18 [Rx] Allergies/Adverse Reactions: 3 Allergy/AdvReac Type Severity Reaction Status Date / Time No Known Allergies Allergy Verified 02/18/18 11:23 - Respiratory Orders Smoking Cessation: Smoking cessation has been advised. For more information, call the [place] Tobacco Quit Line at 8-111-TCLH-NOW. - Advance Directives Code Status: Full Code - Rehabiliation Orders Rehab Orders: Evaluation for Physical Therapy, Evaluation for Occupational Therapy - Diet Orders Regular CERTIFICATION: I certify that the transfer of the above named patient to an Extended Care Facility is necessary for the continuing treatment of the diagnosis listed. The above information is true and accurate reflection of patient's current condition. Confidential - Redisclosure prohibited without a patient's written consent.
--- NOTE | 2018-02-27 11:52 | EEG/EMG/Oth Biometrics Report ---
EEG Procedure Report Date of procedure: 02/23/18 EEG Procedure: Routine EEG Procedure Note: Routine 21-channel digital EEG performed and recorded utilizing the standard international 10-20 electrode placement system. FINDINGS: This patient has predominant waking background rhythm which is well- organized, well-developed, average voltage 8 to 10 hertz alpha activity in the posterior regions, symmetrical over the both hemispheres reactive to eye opening and closing, and it is bilaterally synchronous. No [id number] discharges or any lateralizing abnormalities are seen. Photic stimulation and hyperventilation did not produce any convulsive response. No abnormalities were found during the procedure. Intermittent EMG artifacts were seen. Stage II sleep was not achieved. IMPRESSION: Normal awake/ drowsy electroencephalogram. No epileptiform discharges or any other paroxysmal activities or focal abnormalities seen. (Please note that normal EEG does not exclude the diagnosis of seizure or epilepsy, Clinical correlation is recommended.
== END 2018-02-25 11:20 ==
LOC: 3BNU
PROVIDERS: ADMIT General Practice; ATTEND Nurse Practitioner

== ENCOUNTER 2020-07-09 15:27 | Inpatient (IN) ==
[2020-07-09] MEDS ORDERED: 0.9 % Sodium Chloride 1,000 ML IVC ONE (15:46)
[2020-07-09 16:13] LABS: Basophils % 0.4 %; Hematocrit 38.8 % (37.5-50.1); Hemoglobin 13.7 g/dL (12.9-16.9); Immature Granulocytes % 0.4 % (0-4); Lymphocytes # 1.3 K/mcL (0.6-4.6); Lymphocytes % 13.1 %; Mean Corpuscular HGB Conc 35.3 g/dL (31.6-35.5); Mean Corpuscular Hemoglobin 36.6 pg (28.0-33.3); Mean Corpuscular Volume 103.7 fL (83.0-100.0); Mean Platelet Volume 10.2 fL (9.4-12.4); Monocytes # 0.5 K/mcL (0.0-1.3); Monocytes % 5.7 %; Neutrophils # 7.7 K/mcL (1.6-8.9); Platelet Count 165 K/mcL (140-400); Red Blood Count 3.74 M/mcL (4.19-5.50); Red Cell Distribution Width 11.9 % (11.5-14.5); Segmented Neutrophils % 80.4 %; White Blood Count 9.5 K/mcL (4.3-11.1)
[2020-07-09 16:19] LABS: INR 1.2; Prothrombin Time 13.6 Seconds (9.4-12.1)
[2020-07-09 16:33] LABS: Alanine Aminotransferase 49 Units/L (7-52); Albumin 4.5 g/dL (3.5-5.7); Albumin/Globulin Ratio 1.3 (1.1-2.2); Alkaline Phosphatase 188 Units/L (34-104); Aspartate Amino Transferase 145 Units/L (13-39); BUN/Creatinine Ratio 10 (6-26); Bilirubin,Total 1.2 mg/dL (0.3-1.0); Blood Urea Nitrogen 8 mg/dL (6-20); Calcium 9.8 mg/dL (8.6-10.3); Carbon Dioxide 29 mEq/L (23-29); Chloride 85 mEq/L (98-107); Ethanol 224 mg/dL (Less than 10); Globulin 3.6 g/dL (2.4-3.5); Glucose 114 mg/dL (70-105); Lipase 86 Units/L (11-82); Magnesium 1.3 mg/dL (1.6-2.6); Osmolality,Calculated 267 (280-300); Phosphorous 2.8 mg/dL (2.7-4.5); Potassium 3.2 mEq/L (3.5-5.1); Sodium 129 mEq/L (136-145); Total Protein 8.1 g/dL (6.4-8.9); eGFR For African Americans > 60 (> 60); eGFR For Non-African Americans > 60 (> 60)
[2020-07-09] MEDS ORDERED: Magnesium Sulfate 1 GM/102 ML PIGGYBACK IVPB ONE (16:47)
[2020-07-09] MEDS ORDERED: Potassium Chloride 40 MEQ, Lidocaine 1% 2 ML in D5% in Water 500 ML IVPB ONE (16:47)
[2020-07-09] MEDS ORDERED: Thiamine (B-1) 100 MG, Folic Acid 1 MG in 0.9 % Sodium Chloride 50 ML IVPB ONE (16:58)
[2020-07-09] MEDS ORDERED: Acetaminophen 325 MG TABLET PO PRN (17:24)
[2020-07-09] MEDS ORDERED: Naloxone 0.4 MG/ML INJ IVP PRN (17:24)
[2020-07-09] MEDS ORDERED: *HR* LORazepam 2 MG/ML VIAL IVP PRN (17:26)
[2020-07-09 18:56] LABS: Bilirubin,Urine Negative (Negative); Blood,Urine Negative (Negative); Clarity,Urine Clear (Clear); Color,Urine Light-Yellow (Yellow); Glucose,Urine (UA) Normal (Normal); Ketones,Urine Negative (Negative); Leukocyte Esterase,Urine Negative (Negative); Nitrite,Urine Negative (Negative); PH,Urine 6.5 pH Units (5.0-8.0); Protein,Urine Negative (Neg-Trace); Specific Gravity,Urine 1.005 (1.010-1.025); Urobilinogen,Urine Normal (Normal)
[2020-07-09 19:06] LABS: Amphetamine Screen,Urine Negative ng/mL (Cutoff=1000); Barbiturate Screen,Urine Negative ng/mL (Cutoff=200); Benzodiazepines Screen,Urine Negative ng/mL (Cutoff=200); Cannabinoid Screen,Urine Negative ng/mL (Cutoff = 50); Cocaine Screen,Urine Negative ng/mL (Cutoff= 300); Opiate Screen,Urine Negative ng/mL (Cutoff=300); Phencyclidine Screen,Urine Negative ng/mL (Cutoff=25)
[2020-07-09] MEDS: Ondansetron 4 MG/2 ML VIAL IVP PRN (19:43)
[2020-07-09] MEDS: *HR* LORazepam 2 MG/ML VIAL IVP PRN ×4 (19:44→23:59)
[2020-07-09] MEDS: 0.9 % Sodium Chloride w KCl 20 MEQ/1,000 ML MLS IVC SCH (22:53)
[2020-07-10] MEDS: *HR* LORazepam 2 MG/ML VIAL IVP PRN ×8 (01:01→22:18)
[2020-07-10 02:13] LABS: Basophils % 0.2 %; Eosinophils % 0.2 %; Hematocrit 35.8 % (37.5-50.1); Hemoglobin 12.6 g/dL (12.9-16.9); Immature Granulocytes % 0.5 % (0-4); Lymphocytes # 1.3 K/mcL (0.6-4.6); Lymphocytes % 15.1 %; Mean Corpuscular HGB Conc 35.2 g/dL (31.6-35.5); Mean Corpuscular Hemoglobin 37.5 pg (28.0-33.3); Mean Corpuscular Volume 106.5 fL (83.0-100.0); Mean Platelet Volume 10.7 fL (9.4-12.4); Monocytes # 0.5 K/mcL (0.0-1.3); Monocytes % 5.8 %; Neutrophils # 6.7 K/mcL (1.6-8.9); Platelet Count 127 K/mcL (140-400); Red Blood Count 3.36 M/mcL (4.19-5.50); Segmented Neutrophils % 78.2 %; White Blood Count 8.6 K/mcL (4.3-11.1)
[2020-07-10 02:31] LABS: Albumin 4.1 g/dL (3.5-5.7); Albumin/Globulin Ratio 1.3 (1.1-2.2); Bilirubin,Direct 0.5 mg/dL (0.0-0.2); Bilirubin,Indirect 0.8 mg/dL (0.0-1.0); Bilirubin,Total 1.3 mg/dL (0.3-1.0); Globulin 3.1 g/dL (2.4-3.5); Total Protein 7.2 g/dL (6.4-8.9)
[2020-07-10 02:34] LABS: BUN/Creatinine Ratio 9 (6-26); Blood Urea Nitrogen 7 mg/dL (6-20); Calcium 9.2 mg/dL (8.6-10.3); Carbon Dioxide 27 mEq/L (23-29); Chloride 92 mEq/L (98-107); Glucose 114 mg/dL (70-105); Magnesium 1.4 mg/dL (1.6-2.6); Osmolality,Calculated 271 (280-300); Phosphorous 1.9 mg/dL (2.7-4.5); Potassium 3.8 mEq/L (3.5-5.1); Sodium 131 mEq/L (136-145); eGFR For African Americans > 60 (> 60); eGFR For Non-African Americans > 60 (> 60)
[2020-07-10 02:53] LABS: Ferritin > 1500 ng/mL (20-250)
[2020-07-10 02:57] LABS: Folate 5.8 ng/mL (3.0-16.0)
[2020-07-10] MEDS: *HR* Enoxaparin 40 MG/0.4 ML SYRINGE SQ SCH (06:04)
[2020-07-10] MEDS: Ondansetron 4 MG/2 ML VIAL IVP PRN (06:23)
[2020-07-10] MEDS: Thiamine (B-1) 100 MG TABLET PO SCH (07:58)
[2020-07-10] MEDS: Folic Acid 1 MG TABLET PO SCH (07:59)
[2020-07-10] MEDS: Dexmedetomidine HCl 400 MCG/100 ML MLS IVC SCH (23:56)
[2020-07-11 01:10] LABS: Basophils % 0.4 %; Eosinophils # 0.1 K/mcL (0.0-0.6); Hematocrit 35.5 % (37.5-50.1); Hemoglobin 12.1 g/dL (12.9-16.9); Immature Granulocytes % 0.6 % (0-4); Lymphocytes # 1.2 K/mcL (0.6-4.6); Lymphocytes % 17.1 %; Mean Corpuscular HGB Conc 34.1 g/dL (31.6-35.5); Mean Corpuscular Hemoglobin 36.8 pg (28.0-33.3); Mean Corpuscular Volume 107.9 fL (83.0-100.0); Mean Platelet Volume 10.6 fL (9.4-12.4); Monocytes # 0.5 K/mcL (0.0-1.3); Monocytes % 6.6 %; Neutrophils # 5.1 K/mcL (1.6-8.9); Platelet Count 105 K/mcL (140-400); Red Blood Count 3.29 M/mcL (4.19-5.50); Red Cell Distribution Width 12.1 % (11.5-14.5); Segmented Neutrophils % 74.3 %; White Blood Count 6.8 K/mcL (4.3-11.1)
[2020-07-11 01:23] LABS: BUN/Creatinine Ratio 11 (6-26); Blood Urea Nitrogen 8 mg/dL (6-20); Calcium 9.5 mg/dL (8.6-10.3); Carbon Dioxide 26 mEq/L (23-29); Chloride 96 mEq/L (98-107); Glucose 100 mg/dL (70-105); Magnesium 1.5 mg/dL (1.6-2.6); Osmolality,Calculated 274 (280-300); Phosphorous 2.7 mg/dL (2.7-4.5); Potassium 3.5 mEq/L (3.5-5.1); Sodium 133 mEq/L (136-145); eGFR For African Americans > 60 (> 60); eGFR For Non-African Americans > 60 (> 60)
[2020-07-11] MEDS: Dexmedetomidine HCl 400 MCG/100 ML MLS IVC SCH ×3 (05:38→22:10)
[2020-07-11] MEDS: *HR* Enoxaparin 40 MG/0.4 ML SYRINGE SQ SCH (05:39)
[2020-07-11] MEDS: Folic Acid 1 MG TABLET PO SCH (10:00)
[2020-07-11] MEDS: Thiamine (B-1) 100 MG TABLET PO SCH (10:00)
[2020-07-11] MEDS: Vitamin B Complex/Vit C/Vit E 1 EACH TABLET PO SCH (10:00)
[2020-07-11] MEDS: 0.9 % Sodium Chloride w KCl 20 MEQ/1,000 ML MLS IVC SCH (13:45)
[2020-07-12 02:31] LABS: Basophils % 0.4 %; Eosinophils # 0.1 K/mcL (0.0-0.6); Hematocrit 36.7 % (37.5-50.1); Hemoglobin 12.6 g/dL (12.9-16.9); Immature Granulocytes % 0.6 % (0-4); Immature Platelets 5.8 % (1.1-6.1); Lymphocytes # 1.2 K/mcL (0.6-4.6); Lymphocytes % 18.2 %; Mean Corpuscular HGB Conc 34.3 g/dL (31.6-35.5); Mean Corpuscular Hemoglobin 37.3 pg (28.0-33.3); Mean Corpuscular Volume 108.6 fL (83.0-100.0); Mean Platelet Volume 10.9 fL (9.4-12.4); Monocytes # 0.4 K/mcL (0.0-1.3); Monocytes % 5.6 %; Neutrophils # 5.1 K/mcL (1.6-8.9); Platelet Count 103 K/mcL (140-400); Red Blood Count 3.38 M/mcL (4.19-5.50); Red Cell Distribution Width 11.9 % (11.5-14.5); Segmented Neutrophils % 74.2 %; White Blood Count 6.8 K/mcL (4.3-11.1)
[2020-07-12 02:42] LABS: Alanine Aminotransferase 32 Units/L (7-52); Albumin 3.8 g/dL (3.5-5.7); Albumin/Globulin Ratio 1.3 (1.1-2.2); Alkaline Phosphatase 141 Units/L (34-104); Aspartate Amino Transferase 75 Units/L (13-39); BUN/Creatinine Ratio 17 (6-26); Bilirubin,Direct 0.3 mg/dL (0.0-0.2); Bilirubin,Indirect 0.8 mg/dL (0.0-1.0); Bilirubin,Total 1.1 mg/dL (0.3-1.0); Blood Urea Nitrogen 11 mg/dL (6-20); Calcium 9.4 mg/dL (8.6-10.3); Carbon Dioxide 24 mEq/L (23-29); Chloride 98 mEq/L (98-107); Glucose 109 mg/dL (70-105); Magnesium 1.8 mg/dL (1.6-2.6); Osmolality,Calculated 274 (280-300); Phosphorous 3.1 mg/dL (2.7-4.5); Potassium 4.1 mEq/L (3.5-5.1); Sodium 132 mEq/L (136-145); Total Protein 6.8 g/dL (6.4-8.9); eGFR For African Americans > 60 (> 60); eGFR For Non-African Americans > 60 (> 60)
[2020-07-12] MEDS: *HR* Enoxaparin 40 MG/0.4 ML SYRINGE SQ SCH (03:16)
[2020-07-12] MEDS: Folic Acid 1 MG TABLET PO SCH (08:32)
[2020-07-12] MEDS: Vitamin B Complex/Vit C/Vit E 1 EACH TABLET PO SCH (08:32)
[2020-07-12] MEDS: Dexmedetomidine HCl 400 MCG/100 ML MLS IVC SCH (08:32)
[2020-07-12] MEDS: Thiamine (B-1) 100 MG TABLET PO SCH (08:32)
[2020-07-12] MEDS: 0.9 % Sodium Chloride w KCl 20 MEQ/1,000 ML MLS IVC SCH ×2 (16:47)
[2020-07-13 01:13] LABS: Basophils % 0.2 %; Eosinophils % 0.5 %; Hematocrit 36.1 % (37.5-50.1); Hemoglobin 12.3 g/dL (12.9-16.9); Immature Granulocytes % 0.7 % (0-4); Lymphocytes # 1.6 K/mcL (0.6-4.6); Lymphocytes % 20.2 %; Mean Corpuscular HGB Conc 34.1 g/dL (31.6-35.5); Mean Corpuscular Hemoglobin 37.2 pg (28.0-33.3); Mean Corpuscular Volume 109.1 fL (83.0-100.0); Mean Platelet Volume 10.5 fL (9.4-12.4); Monocytes # 0.8 K/mcL (0.0-1.3); Monocytes % 9.3 %; Neutrophils # 5.6 K/mcL (1.6-8.9); Platelet Count 113 K/mcL (140-400); Red Blood Count 3.31 M/mcL (4.19-5.50); Red Cell Distribution Width 12.3 % (11.5-14.5); Segmented Neutrophils % 69.1 %; White Blood Count 8.1 K/mcL (4.3-11.1)
[2020-07-13 01:36] LABS: Alanine Aminotransferase 29 Units/L (7-52); Albumin 3.8 g/dL (3.5-5.7); Albumin/Globulin Ratio 1.3 (1.1-2.2); Alkaline Phosphatase 151 Units/L (34-104); Aspartate Amino Transferase 60 Units/L (13-39); BUN/Creatinine Ratio 18 (6-26); Bilirubin,Total 0.7 mg/dL (0.3-1.0); Blood Urea Nitrogen 11 mg/dL (6-20); Calcium 9.1 mg/dL (8.6-10.3); Carbon Dioxide 23 mEq/L (23-29); Chloride 100 mEq/L (98-107); Globulin 2.9 g/dL (2.4-3.5); Glucose 108 mg/dL (70-105); Magnesium 1.4 mg/dL (1.6-2.6); Osmolality,Calculated 274 (280-300); Potassium 4.3 mEq/L (3.5-5.1); Sodium 132 mEq/L (136-145); Total Protein 6.7 g/dL (6.4-8.9); eGFR For African Americans > 60 (> 60); eGFR For Non-African Americans > 60 (> 60)
[2020-07-13] MEDS: *HR* Enoxaparin 40 MG/0.4 ML SYRINGE SQ SCH (05:20)
[2020-07-13] MEDS: 0.9 % Sodium Chloride w KCl 20 MEQ/1,000 ML MLS IVC SCH ×2 (06:54→16:17)
[2020-07-13] MEDS ORDERED: Acetaminophen 325 MG TABLET PO PRN (07:53)
[2020-07-13] MEDS ORDERED: Naloxone 0.4 MG/ML INJ IVP PRN (07:53)
[2020-07-13] MEDS ORDERED: Ondansetron 4 MG/2 ML VIAL IVP PRN (07:53)
[2020-07-13] MEDS ORDERED: *HR* LORazepam 2 MG/ML VIAL IVP PRN ×3 (07:53)
[2020-07-13] MEDS: Folic Acid 1 MG TABLET PO SCH (09:28)
[2020-07-13] MEDS: Thiamine (B-1) 100 MG TABLET PO SCH (09:28)
[2020-07-14 01:24] LABS: Hematocrit 39.4 % (37.5-50.1); Hemoglobin 13.2 g/dL (12.9-16.9); Mean Corpuscular HGB Conc 33.5 g/dL (31.6-35.5); Mean Corpuscular Volume 110.4 fL (83.0-100.0); Mean Platelet Volume 10.7 fL (9.4-12.4); Platelet Count 137 K/mcL (140-400); Red Blood Count 3.57 M/mcL (4.19-5.50); Red Cell Distribution Width 12.3 % (11.5-14.5); White Blood Count 9.3 K/mcL (4.3-11.1)
[2020-07-14 04:48] LABS: BUN/Creatinine Ratio 15 (6-26); Blood Urea Nitrogen 9 mg/dL (6-20); Carbon Dioxide 25 mEq/L (23-29); Chloride 98 mEq/L (98-107); Glucose 111 mg/dL (70-105); Osmolality,Calculated 271 (280-300); Potassium 4.2 mEq/L (3.5-5.1); Sodium 131 mEq/L (136-145); eGFR For African Americans > 60 (> 60); eGFR For Non-African Americans > 60 (> 60)
[2020-07-14] MEDS ORDERED: *HR* Enoxaparin 40 MG/0.4 ML SYRINGE SQ SCH (06:00)
[2020-07-14] MEDS: Folic Acid 1 MG TABLET PO SCH (08:20)
[2020-07-14] MEDS: Thiamine (B-1) 100 MG TABLET PO SCH (08:20)
[2020-07-14 10:34] VITALS: BP 125/71
== END 2020-07-14 12:56 | disposition home or self-care (01) | DRG 897 ==
LOC: EMEROOARM 15:27 → 2ANU 15:27 → 2NNU 07-10 22:09 → SUATTDRO 07-11 15:38 → 3ANU 07-13 15:36
PROVIDERS: ADMIT Internal Medicine; ATTEND Family Medicine